=== PATIENT | female | born 1945 | race Caucasian/White ===

== ENCOUNTER 2021-05-07 14:19 | Inpatient (IN) | payer MEDICARE ==
--- NOTE | 2021-05-07 14:35 | ED ---
Chest Pain HPI - General Stated Complaint: Chest Pain Time Seen by Provider: 05/07/21 14:19 Source: patient, EMS, RN notes reviewed Mode of arrival: EMS - History of Present Illness Initial Comments: 75-year-old female with no prior history of heart or lung disease who presents by EMS with complaints of the onset just prior to arrival of retrosternal chest pain nonradiating 5/10 severity she states it felt like a pressure or heaviness or tightness. She was given 3 nitroglycerin one full-strength aspirin by paramedics upon arrival patient's pain level was 0/10. She did have some nausea with this. Her only prior history of that of hypertension which apparently she does not take medicines regularly. No recent illnesses no trauma no other complaints or modifying factors at this time. MD Complaint: chest pain - Related Data Home Medications Medication Instructions Recorded Confirmed Aspirin EC [Ecotrin] 81 mg PO HS 06/10/15 05/07/21 Ascorbic Acid [Vitamin C] 1,000 mg PO HS 05/07/21 05/07/21 Cholecalciferol [Vitamin D3 (25 25 mcg PO HS 05/07/21 05/07/21 Mcg = 1000 Iu)] Cyanocobalamin (Vitamin B-12) 1,000 mcg PO HS 05/07/21 05/07/21 [Vitamin B-12] L.acidoph,Paracasei, B.lactis 1 cap PO HS 05/07/21 05/07/21 [Probiotic] Ubidecarenone [Co Q-10] 100 mg PO HS 05/07/21 05/07/21 Allergies Allergy/AdvReac Type Severity Reaction Status Date / Time codeine AdvReac dizziness Verified 05/07/21 16:45 Review of Systems ROS Statement: Those systems with pertinent positive or pertinent negative responses have been documented in the HPI. ROS Other: All systems not noted in ROS Statement are negative. EKG Findings - EKG Results: EKG: interpreted by MING, sinus rhythm (EKG demonstrates a sinus tachycardia rate 102. Interval 172 QRS duration 90 QT since QTC 354/461 evidence a left exodeviation nonspecific septal changes this is compared to the one transmitted by paramedics which did demonstrate at that time some evidence of ST depression in leads 2 and 3 as well A) Past Medical History Past Medical History: Hypertension History of Any Multi-Drug Resistant Organisms: None Reported Past Surgical History: Cholecystectomy, Tubal Ligation Past Anesthesia/Blood Transfusion Reactions: No Reported Reaction Past Psychological History: No Psychological Hx Reported Additional Psychological History / Comment(s): PT IS INDEPENDANT, 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 Past Alcohol Use History: None Reported Past Drug Use History: None Reported - Past Family History Father Family Medical History: No Reported History Mother History Unknown: Yes General Exam - General Exam Comments Initial Comments: This is a well-developed well-nourished awake alert oriented 3 female General appearance: alert, anxious Head exam: Present: atraumatic, normocephalic, normal inspection Eye exam: Present: normal appearance, PERRL, EOMI. Absent: scleral icterus, conjunctival injection, periorbital swelling ENT exam: Present: normal exam, mucous membranes moist Neck exam: Present: normal inspection, full ROM, other. Absent: tenderness, meningismus, lymphadenopathy Respiratory exam: Present: normal lung sounds bilaterally. Absent: respiratory distress, wheezes, rales, rhonchi, stridor Cardiovascular Exam: Present: regular rate, normal rhythm, normal heart sounds. Absent: systolic murmur, diastolic murmur, rubs, gallop, clicks GI/Abdominal exam: Present: soft, normal bowel sounds. Absent: distended, tenderness, guarding, rebound, rigid, bruit (Extremityorbruits), pulsatile mass Extremities exam: Present: normal inspection, full ROM, normal capillary refill. Absent: tenderness, pedal edema, joint swelling, calf tenderness Back exam: Present: normal inspection Neurological exam: Present: alert, oriented X3, CN II-XII intact Psychiatric exam: Present: normal affect, normal mood Skin exam: Present: warm, dry, intact, normal color. Absent: rash Course Vital Signs 05/07/21 14:48 Temperature 97.1 F L Pulse Rate 105 H Respiratory 16 Rate Blood Pressure 171/84 O2 Sat by Pulse 96 Oximetry Chest Pain MDM - MDM Imaging reviewed no acute findings. Patient did have a couple more episodes not feeling well on the emergency department but no overt pain. She also stated she had chest pain last evening he did take 5 aspirin at that time. After long discussion she will be seen in the hospital and get evaluated by cardiology the case was discussed with Jonathan from 's service. I did discuss this with the patient's family was present Disposition Clinical Impression: Unstable angina pectoris Disposition: ADMITTED IP TO THIS HOSP Condition: Stable Referrals: Saurav Rowell MD [Primary Care Provider] - 1-2 days
[2021-05-07 14:42] LABS: Basophils # (A) 0.1 k/uL (0-0.2); Basophils % (A) 1 %; Eosinophils # (A) 0.3 k/uL (0-0.7); Eosinophils % (A) 4 %; HCT 48.5 % (34.0-46.0); HGB 15.4 gm/dL (11.4-16.0); Lymphocytes # (A) 2.1 k/uL (1.0-4.8); Lymphocytes % (A) 29 %; MCHC 31.8 g/dL (31.0-37.0); MCV 94.2 fL (80.0-100.0); Monocytes # (A) 0.4 k/uL (0-1.0); Monocytes % (A) 5 %; Neutrophils # (A) 4.2 k/uL (1.3-7.7); Neutrophils % (A) 58 %; Platelet Count 298 k/uL (150-450); RBC 5.15 m/uL (3.80-5.40); RDW 13.3 % (11.5-15.5); WBC 7.1 k/uL (3.8-10.6)
[2021-05-07 14:58] LABS: INR 0.9 (<1.2); Partial Thromboplastin Time 22.7 sec (22.0-30.0); Prothrombin Time 10.4 sec (9.0-12.0)
[2021-05-07 15:11] LABS: Albumin 4.4 g/dL (3.5-5.0); Calcium 9.2 mg/dL (8.4-10.2); Magnesium 2.1 mg/dL (1.6-2.3); Potassium 3.8 mmol/L (3.5-5.1); Total Bilirubin 0.7 mg/dL (0.2-1.3); Total Protein 7.5 g/dL (6.3-8.2)
--- NOTE | 2021-05-07 15:34 | XR ---
EXAMINATION TYPE: XR chest 2V DATE OF EXAM: 05/07/2021 COMPARISON: NONE HISTORY: Syncope TECHNIQUE: 2 view FINDINGS: Heart and mediastinum are normal. Lungs are clear. Diaphragm is normal. Bony thorax is inta ct. There are chest leads. IMPRESSION: Normal chest.
[2021-05-07] MEDS ORDERED: HEPARIN SODIUM 1,000 UN/ML (10ML VL) IV ONE (17:11)
[2021-05-07] MEDS ORDERED: NITROGLYCERIN SL TABS 0.4 MG TAB SUBLINGUAL PRN (17:11)
--- NOTE | 2021-05-07 17:39 | P.HPIM ---
<Ty Hector - Last Filed: 05/07/21 17:43> History of Present Illness H&P Date: 05/07/21 History of Presenting Illness: Patient is a very pleasant 75-year-old female with a past medical history of hypertension whom is not taking medication as prescribed. She presented to the emergency department today with a chief complaint of sudden onset dizziness/lightheadedness and feeling as though she was suddenly going to pass out. Patient reports feeling as though all of the blood had left her body and that "I was going to leave this world." Patient states this lasted approxima tely 15 minutes and was followed by chest pressure and EMS was called. She reports being given 3 nitroglycerin and an aspirin by EMS which did relieve the chest pressure but also caused some nausea. 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 She denies having any headache, changes in her vision or hearing, tinnitus, palpitations, shortness of breath, dyspnea with exertion, abdominal pain, vomiting, or experiencing any num bness/tingling/weakness in her extremities. Patient was seen and fully evaluated in the emergency department. A chest x-ray was completed and negative for acute cardiopulmonary process. EKG showing sinus tachycardia at 102 bpm. CBC and BMP were unremarkable. Troponin was less than 0.012. D-dimer was borderline elevated at 0.60. Patient admitted under our services with consultation to cardiology. Review of systems: Pertinent positives and negatives as discussed in HPI, a complete review of systems was performed and all other systems are negative. Physical exam: Vital signs reviewed and stable. General: Nontoxic, no distress and appears stated age. Derm: Skin warm and dry, normal coloration for ethnicity. Head: Atraumatic, normocephalic and symmetric. Eyes: EOMs intact, no lid lag, and anicteric sclera Mouth: no lip lesions, mucus membranes moist Cardiovascular: regular rate and rhythm with normal S1S2, no murmur, positive posterior tibial pulses bilaterally, and cap refill < 2 seconds. Lungs: Respirations even, regular, and unlabored on room air. Lungs CTA bilaterally, no rhonchi, no rales, no wheezing, and no accessory muscle usage. Abdominal: soft, nontender to palpation, no guarding, no appreciable organomegaly Ext: ROM intact. No gross muscle atrophy, no edema, no contractures Neuro: Speech clear, face symmetrical and CN II-XII grossly intact with no noted focal neuro deficits Psych: Alert and oriented to person, place, time, and situation. Appropriate and pleasant affect. Assessment and Plan of Care: Chest pressure Dizziness/lightheadedness Elevated d-dimer Hypertension, uncontrolled -Continuation of heparin infusion until acute coronary event can be ruled out -Cardiology consult -Telemetry monitoring -Trend troponins -Echocardiogram -CTA to rule out PE -Orthostatic vitals and fall precautions -Cardiac diet -Begin daily Aspirin, atorvastatin, and metoprolol -Lipid profile and Hgb A1c with a.m. labs. The patient is admitted with an anticipated left than 2 midnight stay for evaluation of atypical chest pain/pressure, dizziness/lightheadedness and elevated d-dimer CODE STATUS: Full code DVT prophylaxis: Heparin Discussed with: Patient and daughter Anticipated discharge date: 1-[address]: Home A total of 45 minutes was spent on the care of this complex patient more than 50% of the time was spent in counseling and care coordination. 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 Past Alcohol Use History: None Reported Past Drug Use History: None Reported - Past Family History Father Family Medical History: No Reported History Mother History Unknown: Yes Medications and Allergies Home Medications Medication Instructions Recorded Confirmed Type Aspirin EC [Ecotrin] 81 mg PO HS 06/10/15 05/07/21 History Ascorbic Acid [Vitamin C] 1,000 mg PO HS 05/07/21 05/07/21 History Cholecalciferol [Vitamin D3 (25 25 mcg PO HS 05/07/21 05/07/21 History Mcg = 1000 Iu)] Cyanocobalamin (Vitamin B-12) 1,000 mcg PO HS 05/07/21 05/07/21 History [Vitamin B-12] L.acidoph,Paracasei, B.lactis 1 cap PO HS 05/07/21 05/07/21 History [Probiotic] Ubidecarenone [Co Q-10] 100 mg PO HS 05/07/21 05/07/21 History Allergies Allergy/AdvReac Type Severity Reaction Status Date / Time codeine AdvReac dizziness Verified 05/07/21 16:45 Physical Exam Vitals: Vital Signs Temp Pulse Resp BP Pulse Ox 05/07/21 14:48 97.1 F L 105 H 16 171/84 96 Intake and Output 05/07/21 05/07/21 05/07/21 06:59 14:59 22:59 Other: Weight 90.718 kg Results CBC & Chem 7: 05/07/21 14:24 05/07/21 14:24 Labs: Abnormal Lab Results - Last 24 Hours (Table) 05/07/21 05/07/21 05/07/21 Range/Units 14:24 14:24 14:24 Hct 48.5 H (34.0-46.0) % D-Dimer 0.60 H (<0.60) mg/L FEU Glucose 116 H (74-99) mg/dL AST 37 H (14-36) U/L ALT 38 H (4-34) U/L <Alba Sears - Last Filed: 05/07/21 19:51> History of Present Illness Patient seen and examined independently. Patient was also seen by Ty Hector NP and case was discussed. I am in agreement with subjective, physical exam, assessment and plan as written above and amended below. No current chest pain. Follows with Dr. Puentes summer counselor out of [place]. General: non toxic, no distress, appears at stated age Derm: warm, dry Head: atraumatic, normocephalic, symmetric Eyes: EOMI, no lid lag, anicteric sclera Mouth: no lip lesion, mucus membranes moist Cardiovascular: S1S2 reg, no murmur, positive posterior tibial pulse bilateral, Lungs: CTA bilateral, no rhonchi, no rales , no accessory muscle use Physical Exam Osteopathic Statement: *. No significant issues noted on an osteopathic structural exam other than those noted in the History and Physical/Consult. Vitals: Vital Signs Temp Pulse Resp BP Pulse Ox 05/07/21 18:30 98 14 179/85 95 05/07/21 14:48 97.1 F L 105 H 16 171/84 96 05/07/21 14:31 100 23 Intake and Output 05/07/21 05/07/21 05/07/21 06:59 14:59 22:59 Other: Weight 90.718 kg Results CBC & Chem 7: 05/07/21 14:24 05/07/21 14:24 Labs: Abnormal Lab Results - Last 24 Hours (Table) 05/07/21 05/07/21 05/07/21 Range/Units 14:24 14:24 14:24 Hct 48.5 H (34.0-46.0) % D-Dimer 0.60 H (<0.60) mg/L FEU Glucose 116 H (74-99) mg/dL AST 37 H (14-36) U/L ALT 38 H (4-34) U/L
[2021-05-07] MEDS: HEPARIN SOD,PORK IN 0.45% NACL 25,000 UNIT in 0.45% NACL 1 250ML.BAG IV SCH (18:22)
--- NOTE | 2021-05-07 18:22 | CT ---
EXAMINATION TYPE: CT chest angio for PE DATE OF EXAM: 05/07/2021 COMPARISON: None HISTORY: Elevated dimer CT DLP: 516.3 mGycm Automated exposure control for dose reduction was used. CONTRAST: Performed with IV Contrast, patient injected with 65 mL of Isovue 370. Images obtained from the thoracic inlet to the diaphragm with IV contrast. There are Three-D postproc essed images. There is no mediastinal adenopathy. Thoracic aorta is intact. There is no aneurysm or dissection. There is normal contrast opacification of the pulmonary arteries. There are no filling defects. The lungs are clear of consolidation. There is mild interstitial density at the posterior lung bases. There is no pleural effusion. There is no evidence of a pulmonary mass. There are no hilar masses. The thoracic spine is intact. There is no compression fracture. Sternum is intact. IMPRESSION: No evidence of pulmonary embolism. Mild interstitial infiltrates at the posterior lung bases. 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 No suspicious pulmonary mass.
[2021-05-07] MEDS: NITROGLYCERIN OINT 1 INCH/GM PACKET TOPICAL SCH (18:24)
[2021-05-07] MEDS ORDERED: NON FORMULARY DRUG (Ubidecarenone [Co Q-10] 100 MG Capsule) PO SCH (21:00)
[2021-05-07] MEDS: ATORVASTATIN 40 MG TAB PO SCH (21:05)
[2021-05-07] MEDS: CYANOCOBALAMIN 500 MCG TAB PO SCH (21:06)
[2021-05-07] MEDS: CHOLECALCIFEROL 25 MCG (1000 IU) TABLET PO SCH (21:06)
[2021-05-07] MEDS: METOPROLOL TARTRATE 25 MG TAB PO SCH (21:06)
[2021-05-07] MEDS: ASCORBIC ACID 500 MG TAB PO SCH (21:06)
[2021-05-07] MEDS ORDERED: MAG HYDROX/AL HYDROX/SIMETH 30 ML CUP PO PRN (21:18)
[2021-05-07] MEDS: PANTOPRAZOLE 40 MG TABLET PO SCH (21:48)
[2021-05-07] MEDS: LACTOBACILLUS ACIDOPH & BULGAR 1 EACH PACKET PO SCH (21:48)
[2021-05-08] MEDS: NITROGLYCERIN OINT 1 INCH/GM PACKET TOPICAL SCH ×4 (00:59→17:38)
[2021-05-08] MEDS: ACETAMINOPHEN TAB 325 MG TAB PO PRN ×4 (02:41→19:25)
[2021-05-08] MEDS ORDERED: amLODIPine 10 MG TAB PO STA (05:34)
--- NOTE | 2021-05-08 09:01 | P.CRDCN ---
History of Present Illness Consult date: 05/08/21 Consult reason: chest pain History of present illness: 75-year-old lady with history of hypertension comes to [facility] with symptoms of dizziness and also chest tightness. She lives in [place] was here in our community to [place] and Dr. masterson fairly uneventful shopping developed sudden onset severe dizziness. She did not have vertigo. Along the way she developed what she describes as a pressure in her chest. Mild to moderate intensity at rest without definite radiation to neck, back. Her blood pressure was quite elevated when she initially presented troponin was mildly elevated EKG did not reveal ischemic changes she was started on intravenous heparin and was admitted to floor. I was called last night with an episode of dizziness and elevated blood pressures. I started her on amlodipine 10 mg daily following which her blood pressure has normalized. This morning she is feeling much better but still has mild dizziness the exact etiology for which is unclear. Patient has recently been diagnosed with hypertension was on some medications but stopped taking it. At the time of admission she was not on any cardiac medications. There is no history of diabetes and dyslipidemia there is no family history of premature coronary artery disease and she is not a smoker Patient needs an echocardiogram to assess her LV function and wall motion and needs cardiac catheterization to rule out ischemic heart disease given the elevated troponin Troponin is 0.8 EKG doesn't reveal ischemic changes Computed tomography scan of the chest is negative for pulmonary embolism I aortic aneurysm or dissection However I want her dizziness evaluated further if necessary by a CAT scan before we do invasive testing on her. Hopefully the neurology can evaluate the patient and I will do the cath tomorrow. I discussed these issues at length with her and she understands and is in agreement with the plans Constitutional: Denies chills. Denies fever. Eyes: Denies blurred vision. Denies pain. Ears, nose, mouth and throat: Denies headache. Denies sore throat. Cardiovascular: Significant for chest pain. Denies shortness of breath. Respiratory: Denies cough. Gastrointestinal: Denies abdominal pain. Denies diarrhea. Denies nausea. Denies vomiting. Musculoskeletal: Denies myalgias. Integumentary: Denies pruritus. Denies rash. Neurological: Denies numbness. Denies weakness. Significant for dizziness Psychiatric: Denies anxiety. Denies depression. Endocrine: Denies fatigue. Denies weight change. Genitourinary: Denies burning, hematuria, frequency of urination. Hematological: No anemia or excess bleeding. General: The patient is awake and alert, in no distress, and does not appear acutely ill. Skin: Skin is warm and dry and no rashes or lesions are noted. Eye: Pupils are equal, round and reactive to light, extra-ocular movements are intact; there is normal conjunctiva bilaterally. Ears, nose, mouth and throat: There are moist mucous membranes and no oral lesions. Neck: The neck is supple, there is no tenderness or JVD. Cardiovascular: There is a regular rate and rhythm. No murmur, rub or gallop is appreciated. Respiratory: Lungs are clear to auscultation, respirations are non-labored, breath sounds are equal. Gastrointestinal: Soft, non-distended, non-tender abdomen without masses or o rganomegaly noted. There is no rebound or guarding present. Bowel sounds are unremarkable. Back: There is no tenderness to palpation in the midline. There is no obvious deformity. Musculoskeletal: Normal ROM, no tenderness, There is no pedal edema. There is no calf tenderness or swelling. Extremities: No edema. Vascular: Femoral pulse is normal. Posterior tibial pulses are normal .Dorsalis pedis is palpable. Neurological: CN II-XII intact. There are no obvious motor or sensory deficits. Speech is normal. Psychiatric: Cooperative, appropriate mood & affect, normal judgment. Assessment and plan: Non-ST segment elevation PR Dizziness rule out cardiac causes Uncontrolled hypertension I will continue the patient on IV heparin start the patient on amlodipine Obtain an echocardiogram Neurology evaluation Cardiac cath tomorrow Past Medical History Past Medical History: Hypertension History of Any Multi-Drug Resistant Organisms: None Reported Past Surgical History: Cholecystectomy, Tubal Ligation Past Anesthesia/Blood Transfusion Reactions: No Reported Reaction Past Psychological History: No Psychological Hx Reported Additional Psychological History / Comment(s): PT IS INDEPENDANT, 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 Past Alcohol Use History: None Reported Past Drug Use History: None Reported - Past Family History Father Family Medical History: No Reported History Mother History Unknown: Yes Medications and Allergies Home Medications Medication Instructions Recorded Confirmed Type Aspirin EC [Ecotrin] 81 mg PO HS 06/10/05/07/21 History Ascorbic Acid [Vitamin C] 1,000 mg PO HS 05/07/21 05/07/21 History Cholecalciferol [Vitamin D3 (25 25 mcg PO HS 05/07/21 05/07/21 History Mcg = 1000 Iu)] Cyanocobalamin (Vitamin B-12) 1,000 mcg PO HS 05/07/21 05/07/21 History [Vitamin B-12] L.acidoph,Paracasei, B.lactis 1 cap PO HS 05/07/21 05/07/21 History [Probiotic] Ubidecarenone [Co Q-10] 100 mg PO HS 05/07/21 05/07/21 History Allergies Allergy/AdvReac Type Severity Reaction Status Date / Time codeine AdvReac dizziness Verified 05/07/21 16:45 Physical Exam Vitals: Vital Signs Temp Pulse Pulse Resp BP BP Pulse Ox 05/08/21 05:34 86 187/80 05/08/21 00:57 98.5 F 72 16 169/73 97 05/07/21 19:25 97.9 F 103 H 16 190/82 98 05/07/21 18:30 98 14 179/85 95 05/07/21 14:48 97.1 F L 105 H 16 171/84 96 05/07/21 14:31 100 23 Intake and Output 05/07/21 05/08/21 05/08/21 22:59 06:59 14:59 Other: # Voids 2 3 Weight 90.718 kg Results 05/07/21 14:24 05/07/21 14:24 Cardiac Enzymes 05/07/21 05/07/21 05/07/21 Range/Units 14:24 14:24 21:11 AST 37 H (14-36) U/L Troponin I <0.012 0.807 H* (0.000-0.034) ng/mL 05/08/21 Range/Units 01:15 AST (14-36) U/L Troponin I 0.780 H* (0.000-0.034) ng/mL Coagulation 05/07/21 05/08/21 Range/Units 14:24 01:15 PT 10.4 (9.0-12.0) sec APTT 22.7 51.7 H (22.0-30.0) sec CBC 05/07/21 Range/Units 14:24 WBC 7.1 (3.8-10.6) k/uL RBC 5.15 (3.80-5.40) m/uL Hgb 15.4 (11.4-16.0) gm/dL Hct 48.5 H (34.0-46.0) % Plt Count 298 (150-450) k/uL Comprehensive Metabolic Panel 05/07/21 Range/Units 14:24 Sodium 140 (137-145) mmol/L Potassium 3.8 (3.5-5.1) mmol/L Chloride 104 (98-107) mmol/L Carbon Dioxide 26 (22-30) mmol/L BUN 12 (7-17) mg/dL Creatinine 0.90 (0.52-1.04) mg/dL Glucose 116 H (74-99) mg/dL Calcium 9.2 (8.4-10.2) mg/dL AST 37 H (14-36) U/L ALT 38 H (4-34) U/L Alkaline Phosphatase 75 (38-126) U/L Total Protein 7.5 (6.3-8.2) g/dL Albumin 4.4 (3.5-5.0) g/dL Current Medications Generic Name Dose Route Start Last Admin Trade Name Freq PRN Reason Stop Dose Admin Acetaminophen 650 mg 05/08/21 01:06 05/08/21 05:15 Acetaminophen Tab 325 Mg Tab PO 650 mg Q4HR PRN Administration Fever and/ or Pain Al Hydroxide/Mg Hydroxide 30 ml 05/07/21 21:18 Mag Hydrox/Al Hydrox/Simeth 30 Ml Cup PO Q4HR PRN GI Upset Ascorbic Acid 1,000 mg 05/07/21 21:00 05/07/21 21:06 Ascorbic Acid 500 Mg Tab PO 1,000 mg HS MUNIRA Administration Aspirin 325 mg 05/08/21 09:00 Aspirin 325 Mg Tab PO DAILY MUNIRA Atorvastatin Calcium 40 mg 05/07/21 21:00 05/07/21 21:05 Atorvastatin 40 Mg Tab PO 40 mg HS MUNIRA Administration Cholecalciferol 25 mcg 05/07/21 21:00 05/07/21 21:06 Cholecalciferol 25 Mcg (1000 Iu) Tablet PO 25 mcg HS MUNIRA Administration Cyanocobalamin 1,000 mcg 05/07/21 21:00 05/07/21 21:06 Cyanocobalamin 500 Mcg Tab PO 1,000 mcg HS MUNIRA Administration Heparin Sodium/Sodium Chloride 250 mls @ 9.997 mls/hr 05/07/21 17:15 05/07/21 18:22 25,000 unit/ Sodium Chloride IV 11.02 units/kg/hr .Q24H MUNIRA 9.997 mls/hr Administration Protocol 11.02 UNITS/KG/HR Lactobacillus Acidoph/Bulgaricus 1 each 05/07/21 21:00 05/07/21 21:48 Lactobacillus Acidoph & Bulgar 1 Each Packet PO 1 each HS MUNIRA Administration Metoprolol Tartrate 25 mg 05/07/21 21:00 05/07/21 21:06 Metoprolol Tartrate 25 Mg Tab PO 25 mg BID MUNIRA Administration Nitroglycerin 0.4 mg 05/07/21 17:11 Nitroglycerin Sl Tabs 0.4 Mg Tab SUBLINGUAL Q5M PRN Chest Pain Nitroglycerin 1 inch 05/07/21 18:00 05/08/21 05:15 Nitroglycerin Oint 1 Inch/Gm Packet TOPICAL 1 inch Q6HR MUNIRA Administration Pantoprazole Sodium 40 mg 05/07/21 21:30 05/07/21 21:48 Pantoprazole 40 Mg Tablet PO 40 mg AC-BID MUNIRA Administration Intake and Output 05/07/21 05/08/21 05/08/21 22:59 06:59 14:59 Other: # Voids 2 3 Weight 90.718 kg 05/07/21 14:24 05/07/21 14:24
--- NOTE | 2021-05-08 10:19 | P.CNNES ---
History of Present Illness Consult date: 05/08/21 Requesting physician: Ty Hector Reason for Consult: intractable dizziness History of Present Illness: This is a 75-year-old woman with medical history of hypertension and was not on any medication who presented to the emergency department via EMS because of chest pain. Patient stated she had different sudden onset of dizziness and lightheadedness and the feeling as if the she is about to pass out. Patient stated that the her episode of dizziness and lightheadedness lasted for 15 minutes followed by chest pressure as a result she called EMS and was given 3 nitroglycerin and aspirin by EMS team which did relieve her chest pressure. Patient did that she has chronic dizziness, ringing of both ears the last 6 mon th and left hearing loss for a little bit less than 6 months. He could not describe her dizziness in the past but stated yesterday she wasn't feeling well and she felt something was wrong with her head initially she said dizziness but again she could not describe the dizziness of for me she denies that the room was spinning and she felt it was with resting and with movement position. She denies any diplopia. Denies any focal weakness, numbness. But she felt like yesterday was a was different than the the past regarding her reported dizziness lightheadedness sensation. She denies of any visual disturbance, any difficulty swallowing or difficulty getting her words out. She denies any history of stroke or seizures in the past. She said that that she had a mechanical fall denies any loss of consciousness. She has chronic lower back pain. Some other workup in the hospital consisted of: Initial vital signs is blood pressure of 171/84, heart rate of 105, temperature of 97.1 Fahrenheit oral, respiratory of 16, pulse ox of 96% at room air. Patient blood pressure continues to be at the systolic in the range of 150s to 190s while diastolic is in the 70s to 80's. Patient hematocrit is 48.5 otherwise the rest of the CBC with differential is unremarkable Chemistry panel is AST of 37, ALP of 38, troponins 0.807 repeated as 0.780 otherwise the rest of the canister panel is unremarkable. Méndez virus per chart nondetected that. PT, PTT and INR are within the normal limits on initial presentation Patient was started on heparin drip because of elevated troponin. Review of Systems Review of system: The 12 point system was reviewed and apparent positive and negative per HPI. 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 Past Alcohol Use History: None Reported Past Drug Use History: None Reported - Past Family History Father Family Medical History: No Reported History Mother History Unknown: Yes Medications and Allergies Home Medications Medication Instructions Recorded Confirmed Type Aspirin EC [Ecotrin] 81 mg PO HS 06/10/15 05/07/21 History Ascorbic Acid [Vitamin C] 1,000 mg PO HS 05/07/21 05/07/21 History Cholecalciferol [Vitamin D3 (25 25 mcg PO HS 05/07/21 05/07/21 History Mcg = 1000 Iu)] Cyanocobalamin (Vitamin B-12) 1,000 mcg PO HS 05/07/21 05/07/21 History [Vitamin B-12] L.acidoph,Paracasei, B.lactis 1 cap PO HS 05/07/21 05/07/21 History [Probiotic] Ubidecarenone [Co Q-10] 100 mg PO HS 05/07/21 05/07/21 History Allergies Allergy/AdvReac Type Severity Reaction Status Date / Time codeine AdvReac dizziness Verified 05/07/21 16:45 Physical Examination - Vital Signs Vital Signs: Vital Signs Temp Pulse Pulse Resp BP BP Pulse Ox 05/08/21 07:00 98.3 F 76 18 159/73 97 05/08/21 05:34 86 187/80 05/08/21 00:57 98.5 F 72 16 169/73 97 05/07/21 19:25 97.9 F 103 H 16 190/82 98 05/07/21 18:30 98 14 179/85 95 05/07/21 14:48 97.1 F L 105 H 16 171/84 96 05/07/21 14:31 100 23 Intake and Output 05/07/21 05/08/21 05/08/21 22:59 06:59 14:59 Other: # Voids 2 3 Weight 90.718 kg GENERAL: The patient is lying in bed and is not in acute distress. CHEST: The heart rate is regular rate rhythm. No murmurs to auscultation. LUNG: Clear to auscultation bilaterally no wheezing noted throughout. Not labored breathing. ABDOMEN/GI: Bowel sounds present in all 4 quadrants. No tenderness to palpation throughout. NEUROLOGICAL: Higher mental function: The patient is awake, alert, oriented to self, place and time. Patient is following commands. No aphasia and no neglect. Cranial nerves: The pupils are round, equal and reactive to light. Visual baer are full to confrontation throughout. Extraocular movement is intact no nystagmus is noted. Facial sensation is normal to touch throughout. The facial strength is normal throughout. Hearing is decreased on left compared to right to hand rub (stated that is old). Tongue is midline and moved [id number] without any difficulty. No dysarthria is noted. Shoulder shrug is normal bilaterally. Motor: Gait is normal with normal arm swings. The strength is 5 over 5 throughout. Normal tone and bulk. Cerebellum: Normal finger to nose and heel to ware bilaterally. Sensation: Sensation is normal to touch throughout. Reflexes (right/left): 2+ throughout. except ankles are 1+ Plantars are downgoing bilaterally. Results - Laboratory Findings CBC and BMP: 05/08/21 08:11 05/08/21 08:11 Abnormal Lab Findings: Abnormal Labs 05/07/21 05/07/21 05/07/21 14:24 14:24 14:24 Hct 48.5 H APTT D-Dimer 0.60 H Glucose 116 H AST 37 H ALT 38 H Troponin I 05/07/21 05/08/21 05/08/21 21:11 01:15 01:15 Hct APTT 51.7 H D-Dimer Glucose AST ALT Troponin I 0.807 H* 0.780 H* Assessment and Plan Assessment: Acute on chronic dizziness (but had hard time describing it but denies room spinning): Possibly due to uncontrolled hypertension vs peripheral >central causes Chronic dizziness episode with tinnitus and left hearing loss. Seems more peripheral Chest pressure was elevated troponin Uncontrolled hypertension Plan: I ordered CT of the head. If The CT is negative and the patient continues to have dizziness recommend to pursue MRI the brain with and without gadolinium to rule out any intracranial process. Cardiology is on board 2-D echo was ordered and is pending Hemoglobin A1c is ordered and is pending I consulted physical therapy and occupation therapy for gait training. Recommend patient to follow-up with ENT as outpatient and possibly consider vestibular rehab as outpatient. We'll defer the rest of the medical management to the primary team The plan is discussed with the patient's nurse. Thank you for the consultation. Dr. Nunez will start neurology service tomorrow AM. Jomar Pichardo M.D. Neuro-hospitalist Time with Patient: Greater than 30
[2021-05-08] MEDS: METOPROLOL TARTRATE 25 MG TAB PO SCH ×2 (10:54→20:27)
[2021-05-08] MEDS: ASPIRIN 325 MG TAB PO SCH (10:54)
[2021-05-08] MEDS: PANTOPRAZOLE 40 MG TABLET PO SCH ×2 (10:54→17:38)
[2021-05-08 11:16] LABS: HCT 44.6 % (37.2-46.3); HGB 14.5 g/dL (12.0-15.0); MCH 29.8 pg (27.0-32.0); MCHC 32.5 g/dL (32.0-37.0); MCV 91.6 fL (80.0-97.0); Mean Platelet Volume 9.6 fL (9.5-12.2); NRBC Per 100 WBC 0 /100 WBCS (0.0-0.0); Platelet Count 304 X 10*3/uL (140-440); RBC 4.87 X 10*6/uL (4.10-5.20); RDW 13.7 % (11.5-14.5); WBC 8.17 X 10*3/uL (4.50-10.00)
[2021-05-08 11:22] LABS: ALT 36 U/L (8-44); AST 31 U/L (13-35); African American GFR (CKD) 87.3 (60.0-200.0); Albumin 4.1 g/dL (3.8-4.9); Albumin/Globulin Ratio 1.76 (1.60-3.17); Alkaline Phosphatase 63 U/L (41-126); BUN/Creat Ratio 12.61 Ratio (12.00-20.00); Blood Urea Nitrogen 9.9 mg/dL (9.0-27.0); Calcium 9.3 mg/dL (8.7-10.3); Carbon Dioxide 24.5 mmol/L (20.0-27.5); Chloride 104 mmol/L (96-109); Chol/HDL Ratio 4.36 Ratio; Globulin 2.3 g/dL (1.6-3.3); Glucose 113 mg/dL (70-110); LDL Cholesterol,Calculated 135.4 mg/dL (0.0-131.0); Magnesium 2.3 mg/dL (1.5-2.4); Non-African American GFR(CKD) 75.3 (60.0-200.0); Potassium 4.1 mmol/L (3.5-5.5); Sodium 141 mmol/L (135-145); Total Protein 6.5 g/dL (6.2-8.2)
--- NOTE | 2021-05-08 11:41 | CT ---
EXAMINATION TYPE: CT brain wo con DATE OF EXAM: 05/08/2021 COMPARISON: None HISTORY: dizziness CT DLP: 1171 mGycm Automated exposure control for dose reduction was used. Helical imaging through the brain. FINDINGS: There is no hemorrhage or hydrocephalus. Cerebral vascular calcifications are present. There is corti thomas atrophy. Periventricular white matter shows patchy low attenuation. Calvarium is intact. Paranasa l sinuses and mastoid air cells as visualized are normal. IMPRESSION: NO ACUTE ABNORMALITY. Age-related changes of atrophy and probable chronic small vessel ischemia.
--- NOTE | 2021-05-08 15:11 | ECHOF ---
Referral Reason:Unstable angina MEASUREMENTS -------- HEIGHT: 170.2 cm WEIGHT: 90.7 kg BP: RVIDd: 3.1 cm (< 3.3) IVSd: 1.4 cm (0.6 - 1.1) LVIDd: 4.4 cm (3.9 - 5.3) LVPWd: 1.4 cm (0.6 - 1.1) IVSs: 1.6 cm LVIDs: 3.5 cm LVPWs: 1.7 cm LA Diam: 4.0 cm (2.7 - 3.8) Ao Diam: 3.0 cm (2.0 - 3.7) AV Cusp: 1.4 cm (1.5 - 2.6) MV EXCURSION: 15.618 mm (> 18.000) MV EF SLOPE: 59 mm/s (70 - 150) EPSS: 0.3 cm MV E Freddy: 0.54 m/s MV DecT: 243 ms MV A Freddy: 0.72 m/s MV E/A Ratio: 0.75 RAP: 5.00 mmHg RVSP: 14.20 mmHg FINDINGS -------- Sinus rhythm. This was a techncally difficult study with suboptimal views, , Definity utilized for enhancement of i mages. The left ventricular size is normal. There is moderate concentric left ventricular hypertrophy. O verall left ventricular systolic function is mild-moderately impaired with, an EF between 40 - 45 %. Anterseptal Hypokinesis Septal Hypokinesis [place] Hypokinesis. The right ventricle is normal in size. The left atrial size is normal. The right atrial size is normal. There is mild aortic valve sclerosis. There is no evidence of aortic regurgitation. Mild mitral regurgitation is present. Mild tricuspid regurgitation present. Right ventricular systolic pressure is normal at < 35 mmHg. The pulmonic valve was not well visualized. Echo free space indicative of a pericardial fat pad. CONCLUSIONS -------- 1. This was a techncally difficult study with suboptimal views, , Definity utilized for enhancement o f images. 2. The left ventricular size is normal. 3. There is moderate concentric left ventricular hypertrophy. 4. Overall left ventricular systolic function is mild-moderately impaired with, an EF between 40 - 45 %. 5. Anterseptal Hypokinesis 6. Septal Hypokinesis 7. [place] Hypokinesis. 8. The right ventricle is normal in size. 9. The left atrial size is normal. 10. The right atrial size is normal. 11. There is mild aortic valve sclerosis. 12. Mild mitral regurgitation is present. 13. Mild tricuspid regurgitation present. 14. The pulmonic valve was not well visualized. 15. Echo free space indicative of a pericardial fat pad. GLASS GLAZIER: Claire Guerra RDCS
[2021-05-08] MEDS: HEPARIN SOD,PORK IN 0.45% NACL 25,000 UNIT in 0.45% NACL 1 250ML.BAG IV SCH (17:38)
--- NOTE | 2021-05-08 18:22 | P.PN ---
<Ty Hector - Last Filed: 05/08/21 18:10> Subjective Progress Note Date: 05/08/21 Hospital course: Patient is a very pleasant 75-year-old female with a past medical history of h ypertension whom is not taking medication as prescribed. She presented to the emergency department today with a chief complaint of sudden onset dizziness/lightheadedness and feeling as though she was suddenly going to pass out. Patient reports feeling as though all of the blood had left her body and that "I was going to leave this world." Patient states this lasted approximately 15 minutes and was followed by chest pressure and EMS was called. She reports being given 3 nitroglycerin and an aspirin by EMS which did relieve the chest pressure but also caused some nausea. 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 She denies having any headache, changes in her vision or hearing, tinnitus, palpitations, shortness of breath, dyspnea with exertion, abdominal pain, vomiting, or experiencing any numbness/tingling/weakness in her extremities. Patient was seen and fully evaluated in the emergency department. A chest x-ray was completed and negative for acute cardiopulmonary process. EKG showing sinus tachycardia at 102 bpm. CBC and BMP were unremarkable. Troponin was less than 0.012. D-dimer was borderline elevated at 0.60. Patient admitted under our services with consultation to cardiology. Troponins trended: < 0.012, 0.807, and 0.780. Echocardiogram: mild to moderately impaired EF between 40 and 45% with anteroseptal, septal, and apex hypokinesis. Patient remains on heparin infusion, cardiology plans to take patient for cardiac cath tomorrow morning. Neurology was also consulted secondary to persistent dizziness. Physical exam: Patient seen and fully evaluated at bedside this morning. She reports resolution of chest pressure persistent dizziness/lightheadedness. She denies any headache, changes in her vision or hearing, palpitations, shortness of breath, nausea, or experiencing any numbness/tingling/weakness in her extremities. Blood pressures have been controlled since starting metoprolol 25 mg twice a day and one-time dose of Norvasc. Troponins elevated overnight. Patient remains on heparin infusion per ACS protocol. Cardiology plans to take patient for cardiac cath tomorrow morning. Patient transferred to inpatient admission. Vital signs reviewed and stable. General: Nontoxic, no distress and appears stated age. Derm: Skin warm and dry, normal coloration for ethnicity. Head: Atraumatic, normocephalic and symmetric. Eyes: EOMs intact, no lid lag, and anicteric sclera. No nystagmus. Mouth: no lip lesions, mucus membranes moist Cardiovascular: regular rate and rhythm with normal S1S2, no murmur, positive posterior tibial pulses bilaterally, and cap refill < 2 seconds. Lungs: Respirations even, regular, and unlabored on room air. Lungs CTA bilaterally, no rhonchi, no rales, no wheezing, and no accessory muscle usage. Abdominal: soft, nontender to palpation, no guarding, no appreciable organomegaly Ext: ROM intact. No gross muscle atrophy, no edema, no contractures Neuro: Speech clear, face symmetrical and CN II-XII grossly intact with no noted focal neuro deficits Psych: Alert and oriented to person, place, time, and situation. Appropriate and pleasant affect. Assessment and Plan of Care: NSTEMI Dizziness/lightheadedness Elevated d-dimer Hypertension, uncontrolled -Continuation of heparin infusion per ACS protocol -Cardiology following, plans to take patient to cath lab radiological technologist tomorrow morning -Telemetry monitoring -Troponins trended: < 0.012, 0.807, and 0.780. -Echocardiogram: Revealed mild to moderately impaired EF between 40 and 45% with anteroseptal, septal, and apex hypokinesis -CTA to rule out PE -Orthostatic vitals and fall precautions -Cardiac diet -Begin daily Aspirin, atorvastatin, and metoprolol -Lipid profile and Hgb A1c with a.m. labs. -Neurology consulted secondary to persistent dizziness, plans -Blood pressures have been controlled since starting metoprolol 25 mg twice a day and one-time dose of Norvasc. CODE STATUS: Full code DVT prophylaxis: Heparin Discussed with: Patient and daughter Anticipated discharge date: 1-[address]: Home A total of 45 minutes was spent on the care of this complex patient more than 50% of the time was spent in counseling and care coordination. Objective - Vital Signs Vital signs: Vital Signs Temp 98.0 F 05/08/21 14:52 Pulse 70 05/08/21 14:52 Resp 18 05/08/21 14:52 BP 121/68 05/08/21 14:52 Pulse Ox 97 05/08/21 14:52 Intake & Output 05/07/21 05/08/21 05/08/21 18:59 06:59 18:59 Intake Total 720 Balance 720 Weight 90.718 kg Intake: IV 160 0.9 Normal Saline 160 Intake, IV Titration 80 Amount Heparin Sod,Pork in 0.45% 80 NaCl 25,000 unit In 0.45 % NaCl 1 250ml.bag @ 11. 02 UNITS/KG/HR 9.997 mls/ hr IV .Q24H MUNIRA Rx#: [id number] Oral 480 Other: # Voids 3 - Labs CBC & Chem 7: 05/08/21 08:11 05/08/21 08:11 Labs: Abnormal Lab Results - Last 24 Hours (Table) 05/07/21 05/08/21 05/08/21 Range/Units 21:11 01:15 01:15 APTT 51.7 H (22.0-30.0) sec Glucose (70-110) mg/dL Hemoglobin A1c (0.0-6.0) % Troponin I 0.807 H* 0.780 H* (0.000-0.034) ng/mL Cholesterol (0.00-200.00) mg/dL LDL Cholesterol, Calc (0.0-131.0) mg/dL 05/08/21 05/08/21 05/08/21 Range/Units 08:11 08:11 08:11 APTT 45.0 H (22.0-30.0) sec Glucose 113 H (70-110) mg/dL Hemoglobin A1c 6.5 H (0.0-6.0) % Troponin I (0.000-0.034) ng/mL Cholesterol 206.00 H (0.00-200.00) mg/dL LDL Cholesterol, Calc 135.4 H (0.0-131.0) mg/dL <Alba Sears - Last Filed: 05/08/21 19:23> Subjective Ty Hector NP rendered care for this patient independently, reviewed the findings and plan as documented in the note above. I did not physically speak with or examine the patient on this date. Objective - Vital Signs Vital signs: Vital Signs Temp 98.0 F 05/08/21 14:52 Pulse 70 05/08/21 14:52 Resp 18 05/08/21 14:52 BP 121/68 05/08/21 14:52 Pulse Ox 97 05/08/21 14:52 Intake & Output 05/08/21 05/08/21 05/09/21 06:59 18:59 06:59 Intake Total 1192.597 Balance 1192.597 Intake: IV 160 0.9 Normal Saline 160 Intake, IV Titration 312.597 Amount Heparin Sod,Pork in 0.45% 312.597 NaCl 25,000 unit In 0.45 % NaCl 1 250ml.bag @ 11. 02 UNITS/KG/HR 9.997 mls/ hr IV .Q24H MUNIRA Rx#: [id number] Oral 720 Other: # Voids 3 - Labs CBC & Chem 7: 05/08/21 08:11 05/08/21 08:11 Labs: Abnormal Lab Results - Last 24 Hours (Table) 05/07/21 05/08/21 05/08/21 Range/Units 21:11 01:15 01:15 APTT 51.7 H (22.0-30.0) sec Glucose (70-110) mg/dL Hemoglobin A1c (0.0-6.0) % Troponin I 0.807 H* 0.780 H* (0.000-0.034) ng/mL Cholesterol (0.00-200.00) mg/dL LDL Cholesterol, Calc (0.0-131.0) mg/dL 05/08/21 05/08/21 05/08/21 Range/Units 08:11 08:11 08:11 APTT 45.0 H (22.0-30.0) sec Glucose 113 H (70-110) mg/dL Hemoglobin A1c 6.5 H (0.0-6.0) % Troponin I (0.000-0.034) ng/mL Cholesterol 206.00 H (0.00-200.00) mg/dL LDL Cholesterol, Calc 135.4 H (0.0-131.0) mg/dL
[2021-05-08] MEDS: ATORVASTATIN 40 MG TAB PO SCH (20:26)
[2021-05-08] MEDS: CYANOCOBALAMIN 500 MCG TAB PO SCH (20:26)
[2021-05-08] MEDS: CHOLECALCIFEROL 25 MCG (1000 IU) TABLET PO SCH (20:27)
[2021-05-08] MEDS: ASCORBIC ACID 500 MG TAB PO SCH (20:27)
[2021-05-08] MEDS: LACTOBACILLUS ACIDOPH & BULGAR 1 EACH PACKET PO SCH (20:28)
[2021-05-09] MEDS: NITROGLYCERIN OINT 1 INCH/GM PACKET TOPICAL SCH ×3 (05:17→14:03)
[2021-05-09] MEDS ORDERED: ALPRAZolam 0.5 MG TAB PO PRN (08:07)
[2021-05-09] MEDS ORDERED: ALPRAZolam 0.25 MG TAB PO PRN (08:07)
[2021-05-09] MEDS ORDERED: SODIUM CHLORIDE 0.9% 1,000 ML in EMPTY BAG 1 BAG IV SCH ×2 (08:15→12:45)
[2021-05-09] MEDS: PANTOPRAZOLE 40 MG TABLET PO SCH ×2 (09:08→16:17)
[2021-05-09] MEDS: ASPIRIN 325 MG TAB PO SCH (09:08)
--- NOTE | 2021-05-09 09:15 | P.PN ---
<Ty Hector - Last Filed: 05/09/21 15:23> Subjective Progress Note Date: 05/09/21 Hospital course: Patient is a very pleasant 75-year-old female with a past medical history of h ypertension whom is not taking medication as prescribed. She presented to the emergency department today with a chief complaint of sudden onset dizziness/lightheadedness and feeling as though she was suddenly going to pass out. Patient reports feeling as though all of the blood had left her body and that "I was going to leave this world." Patient states this lasted approximately 15 minutes and was followed by chest pressure and EMS was called. She reports being given 3 nitroglycerin and an aspirin by EMS which did relieve the chest pressure but also caused some nausea. 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 She denies having any headache, changes in her vision or hearing, tinnitus, palpitations, shortness of breath, dyspnea with exertion, abdominal pain, vomiting, or experiencing any numbness/tingling/weakness in her extremities. Patient was seen and fully evaluated in the emergency department. A chest x-ray was completed and negative for acute cardiopulmonary process. EKG showing sinus tachycardia at 102 bpm. CBC and BMP were unremarkable. Troponin was less than 0.012. D-dimer was borderline elevated at 0.60. Patient admitted under our services with consultation to cardiology. Troponins trended: < 0.012, 0.807, and 0.780. Echocardiogram: mild to moderately impaired EF between 40 and 45% with anteroseptal, septal, and apex hypokinesis. Patient remains on heparin infusion, cardiology plans to take patient for cardiac cath tomorrow morning. Neurology was also consulted secondary to persistent dizziness. Physical exam: Patient seen and fully evaluated at bedside this morning. She was sitting up in the chair at the bedside and preparing to go down for cardiac cath. Patient reported having an episode of chest pressure yesterday evening, but states that is now resolved. She continues to report mild dizziness and continues to deny having any headache, changes in vision or hearing, palpitations, shortness of breath, or experiencing any numbness/tingling/weakness in her extremities. Patient to remain on heparin infusion pending cardiac catheterization and further recommendations by compressor operator. update...Patient underwent cardiac cath and was found to have 80-90% stenosis of proximal LAD, successful stenting of the proximal left anterior descending artery was completed and patient then started on dual antiplatelet therapy wirh Brillinta and Aspirin. Vital signs reviewed and stable. General: Nontoxic, no distress and appears stated age. Derm: Skin warm and dry, normal coloration for ethnicity. Head: Atraumatic, normocephalic and symmetric. Eyes: EOMs intact, no lid lag, and anicteric sclera. No nystagmus. Mouth: no lip lesions, mucus membranes moist Cardiovascular: regular rate and rhythm with normal S1S2, no murmur, positive posterior tibial pulses bilaterally, and cap refill < 2 seconds. Lungs: Respirations even, regular, and unlabored on room air. Lungs CTA bilaterally, no rhonchi, no rales, no wheezing, and no accessory muscle usage. Abdominal: soft, nontender to palpation, no guarding, no appreciable organomegaly Ext: ROM intact. No gross muscle atrophy, no edema, no contractures Neuro: Speech clear, face symmetrical and CN II-XII grossly intact with no noted focal neuro deficits Psych: Alert and oriented to person, place, time, and situation. Appropriate and pleasant affect. Assessment and Plan of Care: NSTEMI, resulting in successful stenting of proximal LAD Dizziness/lightheadedness Elevated d-dimer Hypertension, uncontrolled -Continuation of heparin infusion per ACS protocol -Cardiology following, plans to take patient to seed analysis laboratory assistant tomorrow morning -Telemetry monitoring -Troponins trended: < 0.012, 0.807, and 0.780. -Echocardiogram: Revealed mild to moderately impaired EF between 40 and 45% with anteroseptal, septal, and apex hypokinesis -CTA to rule out PE -Orthostatic vitals and fall precautions -Cardiac diet -Continue daily Aspirin, atorvastatin, and metoprolol -Lipid profile revealed hyperlipidemia with total cholesterol of 206 and LDL of 135.4. -A1c 6.5%. -Neurology consulted secondary to persistent dizziness, ordered MRI brain -Blood pressures better controlled CODE STATUS: Full code DVT prophylaxis: Heparin Discussed with: Patient and daughter Anticipated discharge date: Tomorrow morning Anticipated discharge place: Home A total of 40 minutes was spent on the care of this complex patient more than 50% of the time was spent in counseling and care coordination. Objective - Vital Signs Vital signs: Vital Signs Temp 98.0 F 05/09/21 02:55 Pulse 72 05/09/21 02:55 Resp 18 05/09/21 02:55 BP 151/69 05/09/21 02:55 Pulse Ox 98 05/09/21 02:55 Intake & Output 05/08/21 05/09/21 05/09/21 18:59 06:59 18:59 Intake Total 1192.597 400 Balance 1192.597 400 Intake: IV 160 0.9 Normal Saline 160 Intake, IV Titration 312.597 Amount Heparin Sod,Pork in 0.45% 312.597 NaCl 25,000 unit In 0.45 % NaCl 1 250ml.bag @ 11. 02 UNITS/KG/HR 9.997 mls/ hr IV .Q24H [facility] Rx#: [id number] Oral 720 400 Other: Voiding Method Toilet # Voids 2 - Labs CBC & Chem 7: 05/08/21 08:11 05/08/21 08:11 Labs: Abnormal Lab Results - Last 24 Hours (Table) 05/08/21 05/08/21 05/08/21 Range/Units 08:11 08:11 08:11 APTT 45.0 H (22.0-30.0) sec Glucose 113 H (70-110) mg/dL Hemoglobin A1c 6.5 H (0.0-6.0) % Cholesterol 206.00 H (0.00-200.00) mg/dL LDL Cholesterol, Calc 135.4 H (0.0-131.0) mg/dL 05/09/21 Range/Units 07:50 APTT 42.1 H (22.0-30.0) sec Glucose (70-110) mg/dL Hemoglobin A1c (0.0-6.0) % Cholesterol (0.00-200.00) mg/dL LDL Cholesterol, Calc (0.0-131.0) mg/dL <Alba Sears - Last Filed: 05/09/21 16:34> Subjective Correction: Patient underwent Cath today Successful stenting of the LAD on ASA and brillenta CTA completed and no evidence of pulmonary embolism Additional diagnosis: Systolic Cardiomyopathy with EF 40-45%, Dyslipidemia Ty Hector NP rendered care for this patient independently, reviewed the findings and plan as documented in the note above. I did not physically speak with or examine the patient on this date. Objective - Vital Signs Vital signs: Vital Signs Temp 98.2 F 05/09/21 13:00 Pulse 66 05/09/21 14:45 Resp 14 05/09/21 14:45 BP 145/69 05/09/21 14:45 Pulse Ox 98 05/09/21 14:45 Intake & Output 05/08/21 05/09/21 05/09/21 18:59 06:59 18:59 Intake Total 1192.597 400 357.12 Balance 1192.597 400 357.12 Intake: IV 160 200 0.9 Normal Saline 160 Intake, IV Titration 312.597 157.12 Amount Heparin Sod,Pork in 0.45% 312.597 157.12 NaCl 25,000 unit In 0.45 % NaCl 1 250ml.bag @ 11. 02 UNITS/KG/HR 9.997 mls/ hr IV .Q24H [facility] Rx#: [id number] Oral 720 400 Other: Voiding Method Toilet # Voids 2 1 - Labs CBC & Chem 7: 05/08/21 08:11 05/08/21 08:11 Labs: Abnormal Lab Results - Last 24 Hours (Table) 05/09/21 Range/Units 07:50 APTT 42.1 H (22.0-30.0) sec
[2021-05-09] MEDS: METOPROLOL TARTRATE 25 MG TAB PO SCH ×2 (09:17→20:37)
[2021-05-09] MEDS ORDERED: LIDOCAINE 1% INJ 10MG/ML (20 ML MDV) ONE (11:11)
[2021-05-09] MEDS ORDERED: VERAPAMIL 2.5 MG/ML 2 ML AMP ONE (11:12)
[2021-05-09] MEDS ORDERED: IV FLUID CONTINUATION 1,000 ML IV ONE (11:15)
[2021-05-09] MEDS ORDERED: fentaNYL (PF) 50 MCG/ML 2 ML AMP ONE (11:22)
[2021-05-09] MEDS: MIDAZOLAM 2 MG/2 ML VIAL IV ONE ×3 (11:39→12:05)
[2021-05-09] MEDS ORDERED: fentaNYL (PF) 50 MCG/ML 2 ML AMP IV ONE (11:39)
[2021-05-09] MEDS ORDERED: LIDOCAINE 1% INJ 10MG/ML (20 ML MDV) SQ ONE ×2 (11:40→12:14)
[2021-05-09] MEDS ORDERED: VERAPAMIL SYRINGE (5 MG/10 ML) INTRAARTER ONE (11:50)
[2021-05-09] MEDS ORDERED: IOPAMIDOL-370 125ML BTL INJ ONE (12:29)
[2021-05-09] MEDS ORDERED: TICAGRELOR 90 MG TAB ONE (12:31)
[2021-05-09] MEDS ORDERED: TICAGRELOR 90 MG TAB PO ONE (12:34)
[2021-05-09] MEDS ORDERED: ZOLPIDEM 5 MG TAB PO PRN (12:39)
[2021-05-09] MEDS ORDERED: ATROPINE SULFATE 0.1 MG/ML 10ML SYRINGE IV PRN (12:39)
[2021-05-09] MEDS ORDERED: RX INFO: IV CONTRAST WAS GIVEN 1 EACH MISC MISCELLANE PRN (12:39)
--- NOTE | 2021-05-09 13:06 | CC ---
CARDIAC CATHETERIZATION REPORT INDICATION: Acute [id number]-[id number]-elevation AK. PROCEDURE NOTE: After obtaining informed consent, left heart catheterization and coronary angiogram were performed via the right radial artery using size 4 Avelina catheter and a pigtail catheter. The patient tolerated the procedure well without any obvious immediate complications. She received moderate conscious sedation. Total sedation time was 25 minutes. Radial artery access was obtained using modified Seldinger technique and catheters and glidewires were floated into the ascending aorta under fluoroscopic guidance. Procedure was completed uneventfully. FINDINGS: HEMODYNAMICS: Left ventricular end-diastolic pressure is 8 to 10 mm. There is no significant gradient across the aortic valve. LEFT VENTRICULOGRAM: Not performed. ANGIOGRAPHIC DATA: RIGHT CORONARY ARTERY: Right coronary artery is a large dominant vessel that shows mild nonobstructive disease in the proximal to midportion. LEFT MAIN CORONARY ARTERY is a normal-sized vessel and is free of stenosis. Divides into left anterior descending coronary artery and circumflex coronary artery. CIRCUMFLEX CORONARY ARTERY and its branches are free of significant stenosis. LEFT ANTERIOR DESCENDING CORONARY ARTERY: LAD shows an an ulcerated plaque in the very proximal portion, at its worst it seems to be an 80-90 percent stenosis. CONCLUSIONS: 80-90 percent ulcerated plaque in the proximal LAD. PLAN: Patient will undergo angioplasty and stent placement of the same. The on-call quality assurance tester has reviewed the angiographic data. MMODL / IJN: [id number] /
--- NOTE | 2021-05-09 13:19 | P.PCN ---
Date of Procedure: 05/09/21 Operative Findings: PERCUTANEOUS CORONARY INTERVENTION Performing physician Kermit Gonzalez M.D. Procedure performed 1. Successful stenting of the proximal left anterior descending artery using 3.5 x 18 mm Xience DOMINGUEZ with an excellent angiographic results and reduction of stenosis from 90% to 0% with JENN-3 flow Indication This is a 75-year-old female patient was admitted to the hospital with a chest discomfort and ruled in for acute coronary event. She underwent heart catheterization by Dr. Martinez and was found to have critical disease involving the proximal left anterior descending artery with an ulcerated plaque. The decision was made towards percutaneous coronary intervention Approach Right radial artery and right common femoral artery Complications None Level of sedation Moderate with a sedation length of 30 minutes Procedure description Please refer to diagnosed at heart catheterization was performed by Dr. Martinez earlier today Anticoagulation was initiated using heparin with continuous ACT monitoring throughout the case. Attempting cannulating the left main from right radial approach was unsuccessful and for that reason I decided to go from the right femoral artery. The right common femoral artery was cannulated using micropuncture technique, the micropuncture wire passed easily then I place a 6-Bhutanese sheath in the right common femoral artery. I engaged the left main coronary artery using JL3.5 guiding catheter. Subsequently I did wire the LAD using a whisper wire. After that I did balloon angioplasty using 2 5 x 12 mm balloon before I deployed 3.25 x 18 mm stent where the stent was positioned under fluoroscopy guidance and deployed under 12 karan for 20 seconds. I posterity the stent using 3.5 mm NC balloon which was inflated under 12 karan for 20 seconds. Please note that upon deploying the stent the stent came back about 2 mm and was stented across the circumflex but we have a good/JENN-3 flow across the circumflex. Postprocedure management #1 dual antiplatelet therapy #2 risk factors modification #3 aggressive cholesterol control #4 follow-up with the patient
[2021-05-09] MEDS: ACETAMINOPHEN TAB 325 MG TAB PO PRN ×2 (13:41→20:38)
[2021-05-09 18:44] VITALS: BMI 31.3
[2021-05-09] MEDS: CYANOCOBALAMIN 500 MCG TAB PO SCH (20:37)
[2021-05-09] MEDS: TICAGRELOR 90 MG TAB PO SCH (20:37)
[2021-05-09] MEDS: LACTOBACILLUS ACIDOPH & BULGAR 1 EACH PACKET PO SCH (20:38)
[2021-05-09] MEDS: ATORVASTATIN 40 MG TAB PO SCH (20:38)
[2021-05-09] MEDS: ASCORBIC ACID 500 MG TAB PO SCH (20:38)
[2021-05-09] MEDS: CHOLECALCIFEROL 25 MCG (1000 IU) TABLET PO SCH (20:38)
[2021-05-09] MEDS: ASPIRIN 81 MG PO SCH (20:38)
--- NOTE | 2021-05-09 23:06 | P.PN ---
Subjective Progress Note Date: 05/09/21 Patient was seen for a follow-up. Patient initially seen by Dr. Kenneth Pichardo. Please refer to his note for details. Patient is a 75-year-old female who has been having dizziness for past 6 months. The dizziness is not positional. It comes and goes. It does not involve when she rolls over. Denies any vertigo, it is more like lightheadedness. Patient states that she did suffer from a fall in which she hit her head a few months ago. She was vacuuming, when she stepped backward, and tripped on something and fell and hit her head on the hardwood floor. Patient believes that the dizziness have been present even before this fall. Patient was admitted with elevated cardiac enzymes. Patient underwent cardiac catheterization, in which she was found to have 80-90% ulcerated plaque in the proximal LAD. Patient underwent angioplasty and stent placement. Patient at present doing well. She has been in the bed since angioplasty. Denies dizziness. Denies any focal symptoms. Objective - Vital Signs Vital signs: Vital Signs Temp 98.2 F 05/09/21 13:00 Pulse 70 05/09/21 16:45 Resp 14 05/09/21 16:45 BP 131/74 05/09/21 16:45 Pulse Ox 97 05/09/21 16:45 Intake & Output 05/08/21 05/09/21 05/09/21 18:59 06:59 18:59 Intake Total 1192.597 400 357.12 Balance 1192.597 400 357.12 Intake: IV 160 200 0.9 Normal Saline 160 Intake, IV Titration 312.597 157.12 Amount Heparin Sod,Pork in 0.45% 312.597 157.12 NaCl 25,000 unit In 0.45 % NaCl 1 250ml.bag @ 11. 02 UNITS/KG/HR 9.997 mls/ hr IV .Q24H [facility] Rx#: [id number] Oral 720 400 Other: Voiding Method Toilet # Voids 2 1 - Exam Patient's mental status, speech and language functions are normal. Cranial nerves II through XII are intact. Visual baer are full. Extraocular muscles are intact. No nystagmus. Pupils are round and reactive to light. Face is symmetric and tongue protrudes to the midline. Hearing appears normal for routine conversation. Lower cranial nerves normal. Muscle strength is normal in the arms. No ataxia for [id number] testing. - Labs CBC & Chem 7: 05/08/21 08:11 05/08/21 08:11 Labs: Abnormal Lab Results - Last 24 Hours (Table) 05/09/21 Range/Units 07:50 APTT 42.1 H (22.0-30.0) sec Assessment and Plan Assessment: * Dizziness/lightheadedness, unclear etiology. Doubt related to neurological issue, as symptoms have been present for [address] head normal. * Coronary artery disease, status post angioplasty and stenting. * Hypertension Plan: * Computed tomography scan of head is normal. * Patient's carotid sounds are normal, no bruit. * 2-D echo revealed normal left-ventricular size. Moderate concentric LVH. Left ventricle systolic function is mild to moderately impaired with EF between 40-45%. Anterior septal hypokinesis. Septal hypokinesis, apex hypokinesis. Mild aortic valve sclerosis. Cardiology following. Patient currently on aspirin and Brilinta 90 mg twice a day. Also on Lipitor 40 mg. * Hemoglobin A1c 6.5. * Lipid panel with cholesterol 206, LDL 135, HDL 47.2 and triglycerides 117. * Patient's dizziness probably related to cardiac issues. Now the patient has undergone cardiac stenting, hopefully her symptoms will resolve. * MRI brain only if patient has persistent symptoms. This can be performed as an outpatient if the symptoms persist. Neurologically clear.
[2021-05-10] MEDS ORDERED: HEPARIN SODIUM,PORCINE 10,000 UNIT in SODIUM CHLORIDE 0.9% 1,000 ML IRRIGATION PRN (07:00)
[2021-05-10] MEDS ORDERED: HEPARIN SODIUM,PORCINE 2,500 UNIT in SODIUM CHLORIDE 0.9% 250 ML IRRIGATION PRN (07:00)
[2021-05-10 08:08] LABS: Basophils # (A) 0.1 k/uL (0-0.2); Basophils % (A) 1 %; Eosinophils # (A) 0.2 k/uL (0-0.7); Eosinophils % (A) 2 %; HCT 47.5 % (34.0-46.0); Lymphocytes % (A) 21 %; MCH 30.4 pg (25.0-35.0); MCHC 31.6 g/dL (31.0-37.0); MCV 96.3 fL (80.0-100.0); Mean Platelet Volume 6.9; Monocytes # (A) 0.5 k/uL (0-1.0); Monocytes % (A) 5 %; Neutrophils # (A) 6.8 k/uL (1.3-7.7); Neutrophils % (A) 70 %; Platelet Count 301 k/uL (150-450); RBC 4.93 m/uL (3.80-5.40); RDW 13.8 % (11.5-15.5); WBC 9.8 k/uL (3.8-10.6)
[2021-05-10 08:18] LABS: African American GFR (CKD) 74 (>60 ml/min/1.73 sqM); Anion Gap 8 mmol/L; Blood Urea Nitrogen 14 mg/dL (7-17); Calcium 9.6 mg/dL (8.4-10.2); Carbon Dioxide 25 mmol/L (22-30); Chloride 106 mmol/L (98-107); Glucose 90 mg/dL (74-99); Magnesium 2.1 mg/dL (1.6-2.3); Non-African American GFR(CKD) 64 (>60 ml/min/1.73 sqM); Potassium 4.3 mmol/L (3.5-5.1); Sodium 139 mmol/L (137-145)
[2021-05-10] MEDS: METOPROLOL TARTRATE 25 MG TAB PO SCH ×2 (08:59→22:35)
[2021-05-10] MEDS: PANTOPRAZOLE 40 MG TABLET PO SCH ×2 (08:59→17:31)
[2021-05-10] MEDS: TICAGRELOR 90 MG TAB PO SCH ×2 (08:59→22:35)
[2021-05-10] MEDS: amLODIPine 5 MG TAB PO SCH (09:00)
--- NOTE | 2021-05-10 09:07 | US ---
EXAMINATION TYPE: US lower ext pseudo artery RT DATE OF EXAM: 05/10/2021 COMPARISON: NONE CLINICAL HISTORY: status post cath, hematoma . EXAM PERFORMED: Grayscale and color Doppler duplex imaging performed of the groin, post cardiac dianne ter to assess for pseudoaneurysm. SIDE PERFORMED: Right Color and Waveform Doppler performed to assess for the presence of pseudoaneurysm; Is there ultrasound evidence of a pseudoaneurysm: no Is there evidence of AV shunting: yes, there is arterial waveforms noted in CFV with continuous flow. Is there a fluid collection present: no IMPRESSION: 1. No diagnostic evidence of pseudoaneurysm. 2. Findings are suspicious for arteriovenous shunting with arterial waveforms seen within the common femoral vein correlate clinically.
--- NOTE | 2021-05-10 09:41 | P.PN ---
Subjective This is a 75-year-old female with a past medical history of hypertension. She follows with Dr. Yanez at [place]. We're consulted for chest pain and elevated troponin. Patient presents to the emergency department on 05/07/21 with complaints of sudden onset chest pain, lightheadedness, dizziness, and feeling that she would suddenly passed out. Her blood pressure was quite elevated when she initially presented. Her initial troponin was negative, repeat troponin 0.80 and 0.78. EKG did not reveal ischemic changes she was started on intravenous h eparin and was admitted to floor. Echocardiogram revealed an EF of 4045 percent, anterior septal hypokinesis, septal hypokinesis, apex hypokinesis, mild mitral regurgitation, mild tricuspid regurgitation. Cardiac catheterization was recommended with Dr. Martinez. Patient underwent cardiac catheterization with Dr. Martinez on 05/09/21 which revealed 80-90% stenosis in the proximal LAD, mild nonobstructive disease in the proximal to mid RCA. Patient under successful PCI to proximal LAD by Dr. Gonzalez. Patient seen and examined at bedside, no acute distress. Her blood pressures have improved, however, her medication this morning was 180/74. She denies any chest pain or shortness of breath. She does have tenderness to the right groin, evidence of hematoma. EKG this morning revealed sinus rhythm, no significant ST- T wave abnormalities. She is currently maintained on aspirin 81 mg daily, atorvastatin 40 mg nightly, Brilinta 90 mg twice a day, metoprolol tartrate 25 mg twice a day GENERAL: Well-appearing, well-nourished and in no acute distress. NECK: Supple without JVD or thyromegaly. LUNGS: Breath sounds clear to auscultation bilaterally. Respiration equal and unlabored. No wheezes, rales or rhonchi. HEART: Regular rate and rhythm without murmurs, rubs or gallops. S1 and S2 heard. EXTREMITIES: Normal range of motion, no edema. No clubbing or cyanosis. Peripheral pulses intact. SKIN: warm, dry. Right groin site, clean, dry, tenderness to palpation with evidence of hematoma ASSESSMENT NSTEMI s/p PCI to proximal LAD on 05/09/21. Hypertension PLAN Ultrasound obtained on patient's Right groin which revealed no pseudoaneurysm, did reveal evidence of AV shunting noted in the common femoral vein. This was discussed with Dr. Mccurdy and Dr. Gonzalez, recommend continuing to monitor at this time. Continue dual antiplatelet therapy with Aspirin and Brilinta Case management consulted and Brilinta is covered with $3.90/month copay Will add amlodipine 5mg daily Continue statin and metoprolol tartrate Continues to monitor patient for additional 24 hours On discharge, patient would like to follow up with Dr. Yanez Nurse Practitioner note has been reviewed, I agree with a documented findings and plan of care. Patient was seen and examined. Objective - Vital Signs Vital signs: Vital Signs Temp 97.9 F 05/09/21 07:00 Pulse 68 05/09/21 07:00 Resp 17 05/09/21 07:00 BP 165/71 05/09/21 07:00 Pulse Ox 97 05/09/21 07:00 Intake & Output 05/08/21 05/09/21 05/09/21 18:59 06:59 18:59 Intake Total 1192.597 400 157.12 Balance 1192.597 400 157.12 Intake: IV 160 0.9 Normal Saline 160 Intake, IV Titration 312.597 157.12 Amount Heparin Sod,Pork in 0.45% 312.597 157.12 NaCl 25,000 unit In 0.45 % NaCl 1 250ml.bag @ 11. 02 UNITS/KG/HR 9.997 mls/ hr IV .Q24H [facility] Rx#: [id number] Oral 720 400 Other: Voiding Method Toilet # Voids 2 - Labs CBC & Chem 7: 05/10/21 07:25 05/10/21 07:25 Labs: Abnormal Lab Results - Last 24 Hours (Table) 05/08/21 05/08/21 05/09/21 Range/Units 08:11 08:11 07:50 APTT 42.1 H (22.0-30.0) sec Glucose 113 H (70-110) mg/dL Hemoglobin A1c 6.5 H (0.0-6.0) % Cholesterol 206.00 H (0.00-200.00) mg/dL LDL Cholesterol, Calc 135.4 H (0.0-131.0) mg/dL
--- NOTE | 2021-05-10 11:44 | P.PN ---
<Ty Hector - Last Filed: 05/10/21 18:07> Subjective Progress Note Date: 05/10/21 Hospital course: Patient is a very pleasant 75-year-old female with a past medical history of h ypertension whom is not taking medication as prescribed. She presented to the emergency department today with a chief complaint of sudden onset dizziness/lightheadedness and feeling as though she was suddenly going to pass out. Patient reports feeling as though all of the blood had left her body and that "I was going to leave this world." Patient states this lasted approximately 15 minutes and was followed by chest pressure and EMS was called. She reports being given 3 nitroglycerin and an aspirin by EMS which did relieve the chest pressure but also caused some nausea. 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 She denies having any headache, changes in her vision or hearing, tinnitus, palpitations, shortness of breath, dyspnea with exertion, abdominal pain, vomiting, or experiencing any numbness/tingling/weakness in her extremities. Patient was seen and fully evaluated in the emergency department. A chest x-ray was completed and negative for acute cardiopulmonary process. EKG showing sinus tachycardia at 102 bpm. CBC and BMP were unremarkable. Troponin was less than 0.012. D-dimer was borderline elevated at 0.60. Patient admitted under our services with consultation to cardiology. Troponins trended: < 0.012, 0.807, and 0.780. Echocardiogram: mild to moderately impaired EF between 40 and 45% with anteroseptal, septal, and apex hypokinesis. Neurology was also consulted secondary to persistent dizziness and placed order for MRI. Patient underwent cardiac cath and was found to have 80-90% stenosis of proximal LAD, successful stenting of the proximal left anterior descending artery was completed and patient then started on dual antiplatelet therapy wirh Brillinta and Aspirin. Physical exam: Patient seen and fully evaluated at bedside this morning. She was resting comfortably in bed. She reports mild pain in right groin remains otherwise de nies having any complaints at this time including headache, lightheadedness, dizziness, chest pain, palpitations, shortness of breath, or experiencing any numbness/tingling/weakness in her extremities. Patient scheduled to undergo MRI later this afternoon for continued persistent intermittent dizziness. Minimal area of firmness to right groin cardiac cath access site, no erythema or drainage. Cardiology ordered ultrasound to further evaluate. Vital signs reviewed and stable. General: Nontoxic, no distress and appears stated age. Derm: Skin warm and dry, normal coloration for ethnicity. Head: Atraumatic, normocephalic and symmetric. Eyes: EOMs intact, no lid lag, and anicteric sclera. No nystagmus. Mouth: no lip lesions, mucus membranes moist Cardiovascular: regular rate and rhythm with normal S1S2, no murmur, positive posterior tibial pulses bilaterally, and cap refill < 2 seconds. Lungs: Respirations even, regular, and unlabored on room air. Lungs CTA bilaterally, no rhonchi, no rales, no wheezing, and no accessory muscle usage. Abdominal: soft, nontender to palpation, no guarding, no appreciable organomegaly Ext: ROM intact. No gross muscle atrophy, no edema, no contractures Neuro: Speech clear, face symmetrical and CN II-XII grossly intact with no noted focal neuro deficits Psych: Alert and oriented to person, place, time, and situation. Appropriate and pleasant affect. Assessment and Plan of Care: NSTEMI, resulting in successful stenting of proximal LAD on 05/09/21 Dizziness/lightheadedness Elevated d-dimer Hypertension, uncontrolled -Continuation of dual antiplatelet therapy. -Cardiology following, appreciate further recommendations. -Telemetry monitoring -Echocardiogram: Revealed mild to moderately impaired EF between 40 and 45% with anteroseptal, septal, and apex hypokinesis -Orthostatic vitals negative -Cardiac diet -Continue daily Aspirin, atorvastatin, and metoprolol -Lipid profile revealed hyperlipidemia with total cholesterol of 206 and LDL of 135.4. -A1c 6.5%. -Neurology consulted secondary to persistent dizziness, ordered MRI brain to be completed this afternoon -Blood pressures better controlled CODE STATUS: Full code DVT prophylaxis: Heparin Discussed with: Patient and RN Anticipated discharge date: Tomorrow morning Anticipated discharge place: Home A total of 40 minutes was spent on the care of this complex patient more than 50% of the time was spent in counseling and care coordination. Objective - Vital Signs Vital signs: Vital Signs Temp 97.6 F 05/10/21 08:00 Pulse 72 05/10/21 08:00 Resp 18 05/10/21 08:00 BP 180/74 05/10/21 08:00 Pulse Ox 98 05/10/21 08:00 Intake & Output 05/09/21 05/10/21 05/10/21 18:59 06:59 18:59 Intake Total 357.12 500 118 Balance 357.12 500 118 Weight 90.718 kg 90.718 kg Intake: IV 200 Intake, IV Titration 157.12 Amount Heparin Sod,Pork in 0.45% 157.12 NaCl 25,000 unit In 0.45 % NaCl 1 250ml.bag @ 11. 02 UNITS/KG/HR 9.997 mls/ hr IV .Q24H MUNIRA Rx#: [id number] Oral 500 118 Other: Voiding Method Toilet # Voids 1 2 # Bowel Movements 1 - Labs CBC & Chem 7: 05/10/21 07:25 05/10/21 07:25 Labs: Abnormal Lab Results - Last 24 Hours (Table) 05/10/21 Range/Units 07:25 Hct 47.5 H (34.0-46.0) % <Alba Sears - Last Filed: 05/10/21 18:56> Subjective Ty Hector NP rendered care for this patient independently, reviewed the findings and plan as documented in the note above. I did not physically speak with or examine the patient on this date. Objective - Vital Signs Vital signs: Vital Signs Temp 98.2 F 05/10/21 14:25 Pulse 80 05/10/21 14:25 Resp 16 05/10/21 14:25 BP 146/68 05/10/21 14:25 Pulse Ox 97 05/10/21 14:25 Intake & Output 05/09/21 05/10/21 05/10/21 18:59 06:59 18:59 Intake Total 357.12 500 236 Balance 357.12 500 236 Weight 90.718 kg 90.718 kg Intake: IV 200 Intake, IV Titration 157.12 Amount Heparin Sod,Pork in 0.45% 157.12 NaCl 25,000 unit In 0.45 % NaCl 1 250ml.bag @ 11. 02 UNITS/KG/HR 9.997 mls/ hr IV .Q24H MUNIRA Rx#: [id number] Oral 500 236 Other: Voiding Method Toilet # Voids 1 2 # Bowel Movements 1 - Labs CBC & Chem 7: 05/10/21 07:25 05/10/21 07:25 Labs: Abnormal Lab Results - Last 24 Hours (Table) 05/10/21 Range/Units 07:25 Hct 47.5 H (34.0-46.0) %
--- NOTE | 2021-05-10 20:27 | MR ---
INDICATION: Patient age:Female; 75 years old; Reason for study: dizziness. COMPARISON: CT brain 05/08/2021. TECHNIQUE: Multi planar, multi sequence imaging was performed through the brain including: T1, T2, In version recovery, Diffusion weighted imaging. No gadolinium was given. FINDINGS: There are 3 foci of increased signal on diffusion-weighted imaging seen on series 303 image 168 and image 104 with subtle low ADC signal located in the right frontal lobe and bilateral occipit al lobe. Additional area of restricted diffusion within the right cerebellum posteriorly. The ventricular system, and cisterns appear unremarkable. Midline structures show no abnormality. The bone marrow signal is within normal limits. The paranasal sinuses and globes are unremarkable. IMPRESSION: Acute/subacute microinfarcts of the right posterior cerebellum, right frontal lobe and bilateral occi pital lobes. This is suspicious for embolic phenomenon given the multiple vascular distribution.
--- NOTE | 2021-05-10 20:54 | US ---
EXAMINATION TYPE: US carotid duplex BILAT DATE OF EXAM: 05/10/2021 COMPARISON: CT, MR CLINICAL HISTORY: CVA. CVA per order. EXAM MEASUREMENTS: RIGHT: Peak Systolic Velocity (PSV) cm/sec ----- Right CCA: 77.1 ----- Right ICA: 343.3 ----- Right ECA: 289.7 ICA/CCA ratio: 4.5 RIGHT: End Diastole cm/sec ----- Right CCA: 17.6 ----- Right ICA: 70.8 ----- Right ECA: 14.0 LEFT: Peak Systolic Velocity (PSV) cm/sec ----- Left CCA: 101.1 ----- Left ICA: 178.0 ----- Left ECA: 207.9 ICA/CCA ratio: 1.8 LEFT: End Diastole cm/sec ----- Left CCA: 16.9 ----- Left ICA: 33.9 ----- Left ECA: 15.6 VERTEBRALS (direction of flow): Right Vertebral: Antegrade Left Vertebral: Antegrade Rhythm: Normal Plaque seen within right CCA, rt bulb, and rt ICA. Elevated velocities within rt prox ICA, mid ICA, a nd rt ECA. Plaque seen within left CCA, lt bulb, and lt ICA. Elevated velocities within lt prox ICA, mid ICA, bu lb, and lt ECA. Limited exam due to tortuous vessels. ICA/CCA ratio was 4.5 on the right and 1.8 on the left. IMPRESSION: 1. Greater than 70% stenosis of the right carotid bifurcation. 2. Less than 50% stenosis of the left carotid bifurcation. Criteria for Assigning % of Stenosis / Diameter reduction (Estimation based on the indirect measurements of the internal carotid artery velocities (ICA PSV). 1. Normal (no stenosis)=ICA PSV < 125 cm/s: ratio < 2.0: ICA EDV<40 cm/s. 2. Less than 50% stenosis=ICA PSV < 125 cm/s: ratio < 2.0: ICA EDV<40 cm/s. 3. 50 to 69% stenosis=ICA PSV of 125 to 230 cm/s: ration 2.0 ? 4.0: ICA EDV 40-100 cm/s. 4. Greater than 70% stenosis to near occlusion= ICA PSV > 230 cm/s: ratio > 4.0: ICA EDV > 100 cm/s. 5. Near occlusion= ICA PSV velocities may be low or undetectable: variable ratio and ICA EDV. 6. Total occlusion=unable to detect flow.
[2021-05-10] MEDS: ASPIRIN 81 MG PO SCH (22:34)
[2021-05-10] MEDS: ATORVASTATIN 40 MG TAB PO SCH (22:34)
[2021-05-10] MEDS: ASCORBIC ACID 500 MG TAB PO SCH (22:34)
[2021-05-10] MEDS: CHOLECALCIFEROL 25 MCG (1000 IU) TABLET PO SCH (22:34)
[2021-05-10] MEDS: CYANOCOBALAMIN 500 MCG TAB PO SCH (22:35)
[2021-05-10] MEDS: LACTOBACILLUS ACIDOPH & BULGAR 1 EACH PACKET PO SCH (22:35)
[2021-05-10] MEDS: ACETAMINOPHEN TAB 325 MG TAB PO PRN (22:36)
--- NOTE | 2021-05-10 23:02 | P.PN ---
Subjective Progress Note Date: 05/10/21 05/10/2021: Patient states that she has not had "real bad dizzy spells". Patient had telemetry monitoring, in which she had sinus rhythm, sinus bradycardia with some PVCs and PACs. No other arrhythmia. Patient had undergone MRI of the brain, which on my review revealed evidence of 3 small (tiny) areas of infarction. 05/09/2021: Patient was seen for a follow-up. Patient initially seen by Dr. Kenneth Pichardo. Please refer to his note for details. Patient is a 75-year-old female who has been having dizziness for past 6 months. The dizziness is not positional. It comes and goes. It does not involve when she rolls over. Denies any vertigo, it is more like lightheadedness. Patient states that she did suffer from a fall in which she hit her head a few months ago. She was vacuuming, when she stepped backward, and tripped on something and fell and hit her head on the hardwood floor. Patient believes that the dizziness have been present even before this fall. Patient was admitted with elevated cardiac enzymes. Patient underwent cardiac catheterization, in which she was found to have 80-90% ulcerated plaque in the proximal LAD. Patient underwent angioplasty and stent placement. Patient at present doing well. She has been in the bed since angioplasty. Denies dizziness. Denies any focal symptoms. Objective - Vital Signs Vital signs: Vital Signs Temp 98.2 F 05/10/21 14:25 Pulse 80 05/10/21 14:25 Resp 16 05/10/21 14:25 BP 146/68 05/10/21 14:25 Pulse Ox 97 05/10/21 14:25 Intake & Output 05/09/21 05/10/21 05/10/21 18:59 06:59 18:59 Intake Total 357.12 500 236 Balance 357.12 500 236 Weight 90.718 kg 90.718 kg Intake: IV 200 Intake, IV Titration 157.12 Amount Heparin Sod,Pork in 0.45% 157.12 NaCl 25,000 unit In 0.45 % NaCl 1 250ml.bag @ 11. 02 UNITS/KG/HR 9.997 mls/ hr IV .Q24H MUNIRA Rx#: [id number] Oral 500 236 Other: Voiding Method Toilet # Voids 1 2 # Bowel Movements 1 - Exam Patient's mental status, speech and language functions are normal. Cranial nerves II through XII are intact. Visual baer are full. Extraocular muscles are intact. No nystagmus. Pupils are round and reactive to light. Face is symmetric and tongue protrudes to the midline. Hearing appears normal for routine conversation. Lower cranial nerves normal. Muscle strength is normal in the arms. No ataxia for [id number] testing. - Labs CBC & Chem 7: 05/10/21 07:25 05/10/21 07:25 Labs: Abnormal Lab Results - Last 24 Hours (Table) 05/10/21 Range/Units 07:25 Hct 47.5 H (34.0-46.0) % Assessment and Plan Assessment: * Dizziness/lightheadedness, unclear etiology. MRI of the brain revealed acute/subacute microinfarcts of the right posterior cerebellum, right frontal lobe and bilateral occipital lobes. This is suspicious for embolic phenomenon given multiple vascular distribution. * Coronary artery disease, status post angioplasty and stenting. * Hypertension Plan: * MRI of the brain without contrast revealed acute/subacute microinfarcts of the right posterior cerebellum, right frontal lobe and bilateral occipital lobes. This is suspicious for embolic phenomenon, given multiple vascular dis tribution. I personally reviewed MRI on the computer and agree with the findings. Uncertain if related to recent cardiac catheterization, or independent cardio-embolic phenomenon. Consider transesophageal echocardiogram and loop recorder. Cardiology on board. * Carotid ultrasound was performed today, which revealed greater than 70% stenosis of the right carotid bifurcation. Less than 50% stenosis of the left carotid bifurcation. Antegrade flow in both vertebral arteries. Suggest vascular surgical consultation. * 2-D echo revealed normal left-ventricular size. Moderate concentric LVH. Left ventricle systolic function is mild to moderately impaired with EF between 40-45%. Anterior septal hypokinesis. Septal hypokinesis, apex hypokinesis. Mild aortic valve sclerosis. Cardiology following. Patient currently on aspirin and Brilinta 90 mg twice a day. Also on Lipitor 40 mg. * Hemoglobin A1c 6.5. * Lipid panel with cholesterol 206, LDL 135, HDL 47.2 and triglycerides 117. * Continue telemetry monitoring.
[2021-05-11] MEDS: METOPROLOL TARTRATE 25 MG TAB PO SCH ×2 (09:00→21:07)
[2021-05-11] MEDS: TICAGRELOR 90 MG TAB PO SCH ×2 (09:00→21:06)
[2021-05-11] MEDS: PANTOPRAZOLE 40 MG TABLET PO SCH ×2 (09:00→17:20)
[2021-05-11] MEDS: amLODIPine 5 MG TAB PO SCH (09:00)
--- NOTE | 2021-05-11 10:53 | P.PN ---
Subjective This is a 75-year-old female with a past medical history of hypertension. She follows with Dr. Yanez at [place]. We're consulted for chest pain and elevated troponin. Patient presents to the emergency department on 05/07/21 with complaints of sudden onset chest pain, lightheadedness, dizziness, and feeling that she would suddenly passed out. Her blood pressure was quite elevated when she initially presented. Her initial troponin was negative, repeat troponin 0.80 and 0.78. EKG did not reveal ischemic changes she was started on intravenous h eparin and was admitted to floor. Echocardiogram revealed an EF of 4045 percent, anterior septal hypokinesis, septal hypokinesis, apex hypokinesis, mild mitral regurgitation, mild tricuspid regurgitation. Cardiac catheterization was recommended with Dr. Martinez. Patient underwent cardiac catheterization with Dr. Martinez on 05/09/21 which revealed 80-90% stenosis in the proximal LAD, mild nonobstructive disease in the proximal to mid RCA. Patient under successful PCI to proximal LAD by Dr. Gonzalez. 05/10/20 Patient with tenderness to the right groin, evidence of hematoma after cardiac catheterization. Ultrasound obtained on patient's Right groin which revealed no pseudoaneurysm, did reveal evidence of AV shunting noted in the common femoral vein. This was discussed with Dr. Mccurdy and Dr. Gonzalez, recommend continuing to monitor at this time. 05/11/20 Patient seen and examined at bedside. She denies any chest pain, shortness of breath, lightheadedness, dizziness or weakness. No focal symptoms. Her groin site has improved, continues to have some swelling, but improved, no longer pain or tenderness MRI brain revealed acute/subacute microinfarcts of the right posterior cerebellum, right frontal lobe and bilateral occipital lobes. Suspicious for embolic phenomenon Carotid Dopplers revealed greater than 70% stenosis in the right carotid bifurcation. She is currently maintained on aspirin 81 mg daily, atorvastatin 40 mg nightly, Brilinta 90 mg twice a day, metoprolol tartrate 25 mg twice a day GENERAL: Well-appearing, well-nourished and in no acute distress. NECK: Supple without JVD or thyromegaly. LUNGS: Breath sounds clear to auscultation bilaterally. Respiration equal and unlabored. No wheezes, rales or rhonchi. HEART: Regular rate and rhythm without murmurs, rubs or gallops. S1 and S2 heard. EXTREMITIES: Normal range of motion, no edema. No clubbing or cyanosis. Per ipheral pulses intact. SKIN: warm, dry. Right groin site, clean, dry, swelling noted, tenderness has resolved ASSESSMENT NSTEMI s/p PCI to proximal LAD on 05/09/21. Hypertension Ischemic cardiomyopathy AV shunting noted in the common femoral vein after cardiac catheterization, improving Carotid stenosis, left Acute/subacute microinfarcts of the right posterior cerebellum, right frontal lobe and bilateral occipital lobes. This is suspicious for embolic phenomenon given multiple vascular distribution. Seen on MRI PLAN Unclear if patient's microinfarcts were caused by cardiac catheterization vs prior event Increase atorvastatin to 80mg daily At this time we do not recommend EDITA inpatient, we do recommend 30 day event monitor first prior to a loop recorder implantation Continue dual antiplatelet therapy with Aspirin and Brilinta Case management consulted and Brilinta is covered with $3.90/month copay Continue amlodipine and metoprolol tartrate Neurology following On discharge, patient would like to follow up with her pv installer tech Dr. Yanez Nurse Practitioner note has been reviewed, I agree with a documented findings and plan of care. Patient was seen and examined. Objective - Vital Signs Vital signs: Vital Signs Temp 97.5 F L 05/11/21 07:20 Pulse 69 05/11/21 07:20 Resp 15 05/11/21 07:20 BP 156/75 05/11/21 07:20 Pulse Ox 98 05/11/21 07:20 Intake & Output 05/10/21 05/11/21 05/11/21 18:59 06:59 18:59 Intake Total 236 180 Balance 236 180 Weight 90.718 kg Intake: Oral 236 180 Other: Voiding Method Toilet # Voids 1 - Labs CBC & Chem 7: 05/10/21 07:25 05/10/21 07:25
--- NOTE | 2021-05-11 11:08 | P.GSCN ---
History of Present Illness Consult date: 05/11/21 Reason for Consult: Carotid stenosis Requesting physician: Alba Sears History of present illness: This is a 75-year-old female who presented to the emergency department on 05/07/2021 with complaints of chest pain and pressure. She has a past medical history of hypertension, however was not taking her medication as prescribed. She also was with complaints of dizziness and lightheadedness although patient states she has had dizziness over the last 2 years duration. However prior to coming into the emergency room she said she felt more of an acute onset of the dizziness where she thought she was going to pass out. She denies any focal deficits such as visiom loss, difficulty with speech, extremity weakness, or facial asymmetry. Initially the patient was seen by cardiology who scheduled her for a cardiac stress test that showed 8990% plaque of the proximal LAD. On 05/09/2021 she underwent stent placement. Neurology was consulted for complaints of dizziness. They did a CT of the brain that was negative for any acute findings. They also ordered an MRI Of the brain that showed acute/subacute microinfarcts of the right posterior cerebellum, right frontal lobe and bilateral occipital lobes. This is suspicious for embolic phenomenon given the multiple vascular distribution. A carotid ultrasound was ordered as well by neurology showing greater than 70% stenosis of the right ICA, left ICA with less than 50%. Vascular surgery was consulted for right ICA stenosis. The patient currently denies any shortness of breath, chest pain, dizziness, focal deficits, nausea, vomiting, fevers or chills. She is currently on dual antiplatelet therapy with Brilinta 90 mg twice a day and aspirin 81 mg daily. Neurology started patient on high-dose statin Lipitor 80 mg daily. Neurology is looking at possibility of MRI findings possibly related to recent cardiac catheterization or independent cardioembolic phenomenon. They are recommending transesophageal echocardiogram and loop recorder. The patient was also evaluated for possible right lower extremity pseudo- aneurysm. Doppler of the right lower extremity revealed no evidence of pseudoaneurysm. Findings are suspicious for arteriovenous shunting with arterial waveforms seen within the common femoral vein, correlate clinically. Cardiology is following. Review of Systems A 14 point review of systems was completed all pertinent positives and negatives as stated in the HPI. 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 Past Alcohol Use History: None Reported Past Drug Use History: None Reported - Past Family History Father Family Medical History: No Reported History Mother History Unknown: Yes Medications and Allergies Home Medications Medication Instructions Recorded Confirmed Type Aspirin EC [Ecotrin Low Dose] 81 mg PO HS 06/10/15 05/07/21 History Ascorbic Acid [Vitamin C] 1,000 mg PO HS 05/07/21 05/07/21 History Cholecalciferol [Vitamin D3 (25 25 mcg PO HS 05/07/21 05/07/21 History Mcg = 1000 Iu)] Cyanocobalamin (Vitamin B-12) 1,000 mcg PO HS 05/07/21 05/07/21 History [Vitamin B-12] L.acidoph,Paracasei, B.lactis 1 cap PO HS 05/07/21 05/07/21 History [Probiotic] Ubidecarenone [Co Q-10] 100 mg PO HS 05/07/21 05/07/21 History Ticagrelor [Brilinta] 90 mg PO BID 30 Days #60 tab 05/09/21 Rx Allergies Allergy/AdvReac Type Severity Reaction Status Date / Time codeine AdvReac dizziness Verified 05/07/21 16:45 Surgical - Exam Vital Signs Pulse Resp 100 23 05/07/21 14:31 05/07/21 14:31 General appearance: The patient is alert, oriented, appears in no acute distress. HET: Head is normocephalic and atraumatic. Pupils are equal and reactive. Neck: Supple without lymphadenopathy. Trachea midline. No audible carotid bruit. Heart: S1 S2. Regular rate and rhythm. Lungs: Clear to auscultation bilaterally. Abdomen: Soft, nontender, nondistended. Extremities: Normal skin color and turgor. No cyanosis, rash, ulceration, clubbing, or edema. Radial and pedal pulses are 2/4 bilaterally. Neurological: No focal deficits. Strength and sensation are grossly intact. Results - Labs 05/10/21 07:25 05/10/21 07:25 Abnormal Lab Results - Last 24 Hours (Table) 05/10/21 Range/Units 07:25 Hct 47.5 H (34.0-46.0) % Diabetes panel 05/10/21 Range/Units 07:25 Sodium 139 (137-145) mmol/L Potassium 4.3 (3.5-5.1) mmol/L Chloride 106 (98-107) mmol/L Carbon Dioxide 25 (22-30) mmol/L BUN 14 (7-17) mg/dL Creatinine 0.90 (0.52-1.04) mg/dL Glucose 90 (74-99) mg/dL Calcium 9.6 (8.4-10.2) mg/dL Calcium panel 05/10/21 Range/Units 07:25 Calcium 9.6 (8.4-10.2) mg/dL Pituitary panel 05/10/21 Range/Units 07:25 Sodium 139 (137-145) mmol/L Potassium 4.3 (3.5-5.1) mmol/L Chloride 106 (98-107) mmol/L Carbon Dioxide 25 (22-30) mmol/L BUN 14 (7-17) mg/dL Creatinine 0.90 (0.52-1.04) mg/dL Glucose 90 (74-99) mg/dL Calcium 9.6 (8.4-10.2) mg/dL Adrenal panel 05/10/21 Range/Units 07:25 Sodium 139 (137-145) mmol/L Potassium 4.3 (3.5-5.1) mmol/L Chloride 106 (98-107) mmol/L Carbon Dioxide 25 (22-30) mmol/L BUN 14 (7-17) mg/dL Creatinine 0.90 (0.52-1.04) mg/dL Glucose 90 (74-99) mg/dL Calcium 9.6 (8.4-10.2) mg/dL - Imaging Comments: Carotid duplex: Right ICA PSV 343, ICA/CCA ratio 4.5 left ICA PSV 178, ICA/CCA ratio 1.8. Impression greater than 70% stenosis of the right carotid bifurcation with less than 50% stenosis of the left carotid bifurcation MRI of the brain: Acute/subacute microinfarcts of the right posterior cerebellum, right frontal lobe and bilateral occipital lobes. Suspicious for embolic phenomenon given the multiple vascular distribution. Chest CTA no evidence of pulmonary embolism. Mild interstitial infiltrates at the posterior lung bases. This could be some mild pulmonary fibrosis. No suspicious pulmonary mass. Brain CT: No acute abnormality. Age-related changes of atrophy and probable chronic small vessel ischemia. Echocardiogram: Moderate concentric left ventricular hypertrophy. Ventricular systolic function Mild to moderately impaired, EF between 40-45%. Anteroseptal hypokinesis, septal hypokinesis, apex hypokinesis, mild aortic valve sclerosis, mild mitral regurgitation, mild tricuspid regurgitation, echo free space indicative of a pericardial fat pad Assessment and Plan Assessment: 1. Hemodynamically significant right ICA stenosis, greater than 70% per carotid ultrasound 2. Acute/subacute microinfarcts of the right posterior cerebellum, right frontal lobe and bilateral occipital lobes. Suspicious for embolic phenomenon as seen on MRI of the brain 3. Dizziness 4. NSTEMI status post PCI to proximal LAD on 05/09/2021 5. Hypertension Plan: 1. Continue with aspirin, Brilinta, statin 2. CT angiogram head and neck ordered 3. Await further recommendations from neurology 4. Further recommendations forthcoming from vascular surgeon Thank you for this consultation, and allowing us take part in the plan of care of your patient during his hospital stay. The impression and plan of care has been dictated as directed. Dr. Valdez I performed a history and examination of this patient, discussed the same with the dictator. I agree with the dictator's note ,documented as a scribe. Any additional findings or plans will be noted.
--- NOTE | 2021-05-11 11:58 | CT ---
EXAMINATION TYPE: CT angio head neck DATE OF EXAM: 05/11/2021 HISTORY: ica stenosis, tia COMPARISON: Carotid ultrasound from yesterday CT DLP: 348.3 mGycm. Automated Exposure Control for Dose Reduction was Utilized. TECHNIQUE: CTA scan of the head and neck are performed with IV Contrast, patient injected with 65 mL of Isovue 370, axial images are obtained, coronal and sagittal reformatted images are reviewed. 3D r econstructed images are created on an independent workstation and reviewed. FINDINGS: Carotid/Vascular Structures: Mild peripheral plaque in the aortic arch. Normal three-vessel origin fr om the aortic arch with mild to moderate peripheral plaque with no significant stenosis. Normal origi n right common carotid artery from the right brachiocephalic artery. There is mild calcified plaque along the course of the right common carotid artery. There is more sev ere mixed plaque at the right carotid bulb extending into proximal internal carotid artery, it is mor e calcified proximally and noncalcified distally, it is causing significant stenosis as suspected on ultrasound one day earlier. Lumen diameter narrowed to 1.8 mm with reconstitution to 5.2 mm superior to this. This is confirmed on raw data axial image 409. Significant stenosis of origin of right exter nal carotid artery is also likely present. Mild to moderate mixed plaque along the course of the left common carotid artery with more severe laurence que in left carotid bulb extending into left internal/external carotid arteries. Significant stenosis at origin of left external carotid artery is thought present. There is densely calcified plaque at o rigin of the left internal carotid artery on raw data images difficult to exclude a significant steno sis reference images 389 through 400. There is blooming artifact from densely calcified plaque noted making accurate evaluation difficult. The vertebral arteries are patent to the basilar junction. Right vertebral artery noted dominant. No significant focal stenosis or aneurysm in the posterior circulation. There is small caliber but paten t right posterior communicating artery. There is hypoplastic left posterior communicating artery. The re is small caliber but patent anterior communicating artery. Mild to moderate peripheral calcified p laque in the distal internal carotid arteries bilaterally. No focal aneurysm in the anterior circulat ion. No significant stenosis. Short segment right middle cerebral artery with trifurcation, tortuous course mimics abrupt cut off on raw data images. Other: Moderate spurring and disc space narrowing C5-C6 and C6-C7 levels. Nasal septum is deviated to right of midline. IMPRESSION: Confirmation of hemodynamically significant stenosis proximal right internal carotid tanya ry measuring near 65%. Suspect significant focal stenosis on the left right at the origin of the left internal carotid artery is thought present. Consider direct catheter angiogram to further evaluate b oth and/or possibly treat. NASCET criteria was used in interpretation of this exam?
--- NOTE | 2021-05-11 12:44 | P.PN ---
Subjective Progress Note Date: 05/11/21 Constitutional: No acute distress, conversant, pleasant Eyes: Anicteric sclerae, moist conjunctiva, no lid-lag PERRLA ENMT: NC/AT Oropharynx clear, no erythema, exudates Neck: Supple, FROM, no masses, or JVD No carotid bruits No thyromegaly Lungs: Clear to auscultation Clear to percussion Normal respiratory effort, no accessory muscle use Cardiovascular: Heart regular in rate and rhythm, No murmurs, gallops, or rubs No peripheral edema Abdominal: Soft Nontender, no guarding, rebound or rigidity Abdomen moving with respiration Normoactive bowel sounds No hepatomegaly, No splenomegaly No palpable mass No abdominal wall hernia noted Skin: Normal temperature, tone, texture, turgor No induration No subcutaneous nodules No rash, lesions No ulcers Extremities: No digital cyanosis No clubbing Pedal pulses intact and symmetrical Radial pulses intact and symmetrical Normal gait and station No calf tenderness Psychiatric:Alert and oriented to person, place and time Appropriate affect Intact judgement Neuro: Muscles Strength 5/5 in all 4 extremities Sensation to light touch grossly present throughout Cranial nerves II-XII grossly intact No focal sensory deficits CVA stable We'll continue to monitor overnight NSTEMI, resulting in successful stenting of proximal LAD on 05/09/21 Dizziness/lightheadedness Elevated d-dimer Hypertension, uncontrolled -Continuation of dual antiplatelet therapy. -Cardiology following, appreciate further recommendations. -Telemetry monitoring -Echocardiogram: Revealed mild to moderately impaired EF between 40 and 45% with anteroseptal, septal, and apex hypokinesis -Orthostatic vitals negative -Cardiac diet -Continue daily Aspirin, atorvastatin, and metoprolol -Lipid profile revealed hyperlipidemia with total cholesterol of 206 and LDL of 135.4. -A1c 6.5%. -Neurology consulted secondary to persistent dizziness, ordered MRI brain to be completed this afternoon -Blood pressures better controlled CODE STATUS: Full code DVT prophylaxis: Heparin Discussed with: Patient and RN Anticipated discharge date: Tomorrow morning Anticipated discharge place: Home Objective - Vital Signs Vital signs: Vital Signs Temp 97.5 F L 05/11/21 07:20 Pulse 69 05/11/21 07:20 Resp 15 05/11/21 07:20 BP 156/75 05/11/21 07:20 Pulse Ox 98 05/11/21 07:20 Intake & Output 05/10/21 05/11/21 05/11/21 18:59 06:59 18:59 Intake Total 236 180 Balance 236 180 Weight 90.718 kg Intake: Oral 236 180 Other: Voiding Method Toilet # Voids 1 - Labs CBC & Chem 7: 05/10/21 07:25 05/10/21 07:25
[2021-05-11] MEDS ORDERED: ATORVASTATIN 80 MG TAB PO SCH (21:00)
[2021-05-11] MEDS: CYANOCOBALAMIN 500 MCG TAB PO SCH (21:06)
[2021-05-11] MEDS: ASCORBIC ACID 500 MG TAB PO SCH (21:06)
[2021-05-11] MEDS: ASPIRIN 81 MG PO SCH (21:06)
[2021-05-11] MEDS: CHOLECALCIFEROL 25 MCG (1000 IU) TABLET PO SCH (21:07)
[2021-05-11] MEDS: ACETAMINOPHEN TAB 325 MG TAB PO PRN (21:07)
[2021-05-11] MEDS: LACTOBACILLUS ACIDOPH & BULGAR 1 EACH PACKET PO SCH (21:07)
--- NOTE | 2021-05-12 00:06 | P.PN ---
Subjective Progress Note Date: 05/11/21 05/11/2021: Patient is sitting in the recliner. Complaining of chest pain pointing to the sternal region, also complaining of dizziness. States she is not feeling well. Cardiology has adjusted her medications. Denies any focal symptoms. 05/10/2021: Patient states that she has not had "real bad dizzy spells". Patient had telemetry monitoring, in which she had sinus rhythm, sinus bradycardia with some PVCs and PACs. No other arrhythmia. Patient had undergone MRI of the brain, which on my review revealed evidence of 3 small (tiny) areas of infarction. 05/09/2021: Patient was seen for a follow-up. Patient initially seen by Dr. Kenneth Pichardo. Please refer to his note for details. Patient is a 75-year-old female who has been having dizziness for past 6 months. The dizziness is not positional. It comes and goes. It does not involve when she rolls over. Denies any vertigo, it is more like lightheadedness. Patient states that she did suffer from a fall in which she hit her head a few months ago. She was vacuuming, when she stepped backward, and tripped on something and fell and hit her head on the hardwood floor. Patient believes that the dizziness have been present even before this fall. Patient was admitted with elevated cardiac enzymes. Patient underwent cardiac catheterization, in which she was found to have 80-90% ulcerated plaque in the proximal LAD. Patient underwent angioplasty and stent placement. Patient at present doing well. She has been in the bed since angioplasty. Denies dizziness. Denies any focal symptoms. Objective - Vital Signs Vital signs: Vital Signs Temp 98.4 F 05/11/21 14:00 Pulse 83 05/11/21 14:00 Resp 15 05/11/21 14:00 BP 143/70 05/11/21 14:00 Pulse Ox 97 05/11/21 14:00 Intake & Output 05/11/21 05/11/21 05/12/21 06:59 18:59 06:59 Intake Total 180 180 Balance 180 180 Intake: Oral 180 180 Other: Voiding Method Toilet Toilet # Voids 1 1 - Exam Patient's mental status, speech and language functions are normal. Cranial nerves II through XII are intact. Visual baer are full. Extraocular muscles are intact. No nystagmus. Pupils are round and reactive to light. Face is symmetric and tongue protrudes to the midline. Hearing appears normal for routine conversation. Lower cranial nerves normal. Muscle strength shows no pronator drift. Her strength is normal in the arms. No ataxia for [id number] testing. - Labs CBC & Chem 7: 05/10/21 07:25 05/10/21 07:25 Assessment and Plan Assessment: * Dizziness/lightheadedness, unclear etiology. MRI of the brain revealed acute/subacute microinfarcts of the right posterior cerebellum, right frontal lobe and bilateral occipital lobes. This is suspicious for embolic phenomenon given multiple vascular distribution. * Coronary artery disease, status post angioplasty and stenting. * Right ICA stenosis * Hypertension Plan: * Patient seen by vascular surgery for right ICA stenosis. CTA of head and neck was performed today which revealed confirmation of hemodynamically significant stenosis proximal right ICA measuring near 65%. Suspect significant focal stenosis on the left side, right at the origin of the left ICA is thought present. Consider direct catheter angiogram to further evaluate both and/or possibly treat. Await final recommendation from vascular surgery. * MRI of the brain without contrast revealed acute/subacute microinfarcts of the right posterior cerebellum, right frontal lobe and bilateral occipital lobes. This is suspicious for embolic phenomenon, given multiple vascular distrib ution. I personally reviewed MRI on the computer and agree with the findings. As these emboli are very small, suggest shower from cholesterol plaque, perhaps related to recent catheterization. Consider transesophageal echocardiogram, if recommended by cardiology. Cardiology on board. * Carotid ultrasound was performed today, which revealed greater than 70% stenosis of the right carotid bifurcation. Less than 50% stenosis of the left carotid bifurcation. Antegrade flow in both vertebral arteries. * 2-D echo revealed normal left-ventricular size. Moderate concentric LVH. Left ventricle systolic function is mild to moderately impaired with EF between 40-45%. Anterior septal hypokinesis. Septal hypokinesis, apex hypokinesis. Mild aortic valve sclerosis. Cardiology following. Patient currently on aspirin and Brilinta 90 mg twice a day. * Hemoglobin A1c 6.5. * Lipid panel with cholesterol 206, LDL 135, HDL 47.2 and triglycerides 117. Continue Lipitor 80 mg daily. * Telemetry monitoring so far showing sinus rhythm, with some PVCs. No other arrhythmia.
[2021-05-12 04:32] VITALS: PULSE 68; RESP 17
[2021-05-12 07:56] VITALS: BP 151/73; TEMP 98
[2021-05-12] MEDS: METOPROLOL TARTRATE 25 MG TAB PO SCH (08:52)
[2021-05-12] MEDS: PANTOPRAZOLE 40 MG TABLET PO SCH (08:52)
[2021-05-12] MEDS: TICAGRELOR 90 MG TAB PO SCH (08:52)
[2021-05-12] MEDS: amLODIPine 5 MG TAB PO SCH (08:52)
--- NOTE | 2021-05-12 10:06 | P.DS ---
Providers Date of admission: 05/08/21 18:22 Attending physician: Alba Sears DO Consults: 05/07/21 17:11 Consult Physician Urgent Consulting Provider: Heriberto Martinez Consult Reason/Comments: Unstable angina New-onset Do you want consulting provider notified?: Yes 05/08/21 09:13 Consult Physician Routine Consulting Provider: Jomar Pichardo Consult Reason/Comments: intractable dizziness Do you want consulting provider notified?: Already Contacted 05/09/21 12:40 Consult Physician Routine Consulting Provider: [facility] Consult Reason/Comments: Post Interventional patient Do you want consulting provider notified?: Already Contacted 05/10/21 23:06 Consult Physician Routine Consulting Provider: La Nena Valdez Consult Reason/Comments: RIght ICA stenosis >70 % Do you want consulting provider notified?: Yes Primary care physician: Saurav Rowell Hospital Course: 75-year-old female admitted to the hospital with non-ST elevation FL did have a cardiac cath and stent Patient also did have an 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 Also patient did have 70% carotid artery stenosis Patient will be scheduled to have surgery as an outpatient has been evaluated by vascular here Constitutional: No acute distress, conversant, pleasant Eyes: Anicteric sclerae, moist conjunctiva, no lid-lag PERRLA ENMT: NC/AT Oropharynx clear, no erythema, exudates Neck: Supple, FROM, no masses, or JVD No carotid bruits No thyromegaly Lungs: Clear to auscultation Clear to percussion Normal respiratory effort, no accessory muscle use Cardiovascular: Heart regular in rate and rhythm, No murmurs, gallops, or rubs No peripheral edema Abdominal: Soft Nontender, no guarding, rebound or rigidity Abdomen moving with respiration Normoactive bowel sounds No hepatomegaly, No splenomegaly No palpable mass No abdominal wall hernia noted Skin: Normal temperature, tone, texture, turgor No induration No subcutaneous nodules No rash, lesions No ulcers Extremities: No digital cyanosis No clubbing Pedal pulses intact and symmetrical Radial pulses intact and symmetrical Normal gait and station No calf tenderness Psychiatric:Alert and oriented to person, place and time Appropriate affect Intact judgement Neuro: Muscles Strength 5/5 in all 4 extremities Sensation to light touch grossly present throughout Cranial nerves II-XII grossly intact No focal sensory deficits Discharge plan Embolic CVA Non-ST elevation FL status post stents follow-up with cardiology as an outpatient Carotid artery stenosis follow-up with vascular for possible surgery as an outpatient Patient Condition at Discharge: Stable Plan - Discharge Summary Discharge Rx Participant: Yes New Discharge Prescriptions: New Ticagrelor [Brilinta] 90 mg PO BID 30 Days #60 tab Metoprolol Tartrate [Lopressor] 25 mg PO BID 30 Days #60 tab amLODIPine [Norvasc] 5 mg PO DAILY 30 Days #30 tab Pantoprazole [Protonix] 40 mg PO AC-BID 30 Days #60 tab Pravastatin Sodium 80 mg PO DAILY 30 Days #30 tab Continue Aspirin EC [Ecotrin Low Dose] 81 mg PO HS Ubidecarenone [Co Q-10] 100 mg PO HS L.acidoph,Paracasei, B.lactis [Probiotic] 1 cap PO HS Cyanocobalamin (Vitamin B-12) [Vitamin B-12] 1,000 mcg PO HS Cholecalciferol [Vitamin D3 (25 Mcg = 1000 Iu)] 25 mcg PO HS Ascorbic Acid [Vitamin C] 1,000 mg PO HS Discharge Medication List Aspirin EC [Ecotrin Low Dose] 81 mg PO HS 06/10/15 [History] Ascorbic Acid [Vitamin C] 1,000 mg PO HS 05/07/21 [History] Cholecalciferol [Vitamin D3 (25 Mcg = 1000 Iu)] 25 mcg PO HS 05/07/21 [History] Cyanocobalamin (Vitamin B-12) [Vitamin B-12] 1,000 mcg PO HS 05/07/21 [History] L.acidoph,Paracasei, B.lactis [Probiotic] 1 cap PO HS 05/07/21 [History] Ubidecarenone [Co Q-10] 100 mg PO HS 05/07/21 [History] Ticagrelor [Brilinta] 90 mg PO BID 30 Days #60 tab 05/09/21 [Rx] Metoprolol Tartrate [Lopressor] 25 mg PO BID 30 Days #60 tab 05/12/21 [Rx] Pantoprazole [Protonix] 40 mg PO AC-BID 30 Days #60 tab 05/12/21 [Rx] Pravastatin Sodium 80 mg PO DAILY 30 Days #30 tab 05/12/21 [Rx] amLODIPine [Norvasc] 5 mg PO DAILY 30 Days #30 tab 05/12/21 [Rx] Follow up Appointment(s)/Referral(s): Saurav Rowell MD [Primary Care Provider] - 1-2 days Pete Yanez MD [REFERRING] - 1 Week La Nena Valdez DO [STAFF PHYSICIAN] - 2 Weeks Patient Instructions/Handouts: Right Heart Catheterization (DC), After Radial Heart Catheterization (GEN) Activity/Diet/Wound Care/Special Instructions: Cardiology Instructions After Cardiac Catheterization with Stent Placement: 1. Aspirin as anti-platelet therapy - Aspirin lessens the chance of heart attack and stroke. It helps prevent blood clots from forming, allowing the blood to flow more easily. Each day, you will take one 81 mg (non-enteric coated) tablet daily. You will be taking aspirin as a lifelong medication. Do not stop unless instructed by your doctor. 2. Anti-platelet Therapy. -In addition to aspirin, you will take ONE of the following anti-platelet medications daily. This will help prevent a clot from forming in your stent: Brilinta (ticagrelor) OR Plavix (clopidogrel) OR Effient (prasugrel), -You will need to take your anti-platelet medicine every day for 12 months -Please consult your heart doctor before you stop this medicine. -They may want you to continue for a longer period of time. 3. Statins -A statin medication lowers cholesterol levels in the blood. This helps slow the progression of heart disease. - Please take your statin medication as prescribed by your doctor. -You may be taking one of the following statins: Lipitor (atorvastatin) Other Medications: -Beta chadd. (Metoprolol) Is a medication that protects your heart from stress and can prevent future heart attacks. It can slow your heart rate. It can take weeks for your body to get used to a beta chadd. The dose may need to be changed a few times as your body adjusts Do not stop taking these medicines without talking to your doctor. -Take all other medicines as directed by your doctor. Do not take any extra aspirin or ibuprofen. They can increase your risk of bleeding. Many [id number] drugs contain aspirin. If you are unsure about what the drug contains, check with your pharmacist before taking it. -For mild discomfort, you may take plain Tylenol (acetaminophen). Follow dose directions, but do not take more than 4,000 mg of acetaminophen in 24 hours. Contact your doctor right away or go to the nearest hospital Emergency Room if you have: -Severe angina or chest pain. (This may be a sign of a problem with your stent.) -Excessive bruising, blood in urine/stool or black tarry stools. Healthy LifeStyle It is important to keep a heart healthy lifestyle. This can improve your long- term health and decrease your risk for heart attacks. -Quitting tobacco: the most important thing you can do to protect your health. -Managing your blood cholesterol, blood pressure, weight, and stress. -The importance of regular exercise. -Heart Healthy Diet: Include more plants in your diet. Eat lots of fresh vegetables and fresh fruits. Eat good fats: plant based oils, avocado, nuts, beans, legumes. Eat more seafood. Limit Meat. Switch to whole grains. -Avoid fried foods and animal fats and processed meats Discharge Disposition: HOME SELF-CARE
[2021-05-12 12:02] LABS: Basophils # (A) 0.09 X 10*3/uL (0.00-0.10); Basophils % (A) 1.1 %; Eosinophils # (A) 0.36 X 10*3/uL (0.04-0.35); Eosinophils % (A) 4.2 %; HCT 45.7 % (37.2-46.3); Immature Grans, Automated 0.6 %; Lymphocytes % (A) 18.7 %; MCH 29.6 pg (27.0-32.0); MCHC 30.6 g/dL (32.0-37.0); MCV 96.6 fL (80.0-97.0); Mean Platelet Volume 10.1 fL (9.5-12.2); Monocytes % (A) 9.4 %; NRBC Per 100 WBC 0 /100 WBCS (0.0-0.0); Neutrophils # (A) 5.65 X 10*3/uL (1.80-7.70); Platelet Count 210 X 10*3/uL (140-440); RBC 4.73 X 10*6/uL (4.10-5.20); RDW 14.1 % (11.5-14.5); WBC 8.55 X 10*3/uL (4.50-10.00)
[2021-05-12 12:03] LABS: RBC Morphology NORMAL
--- NOTE | 2021-05-12 12:17 | P.PN ---
Subjective This is a 75-year-old female with a past medical history of hypertension. She follows with Dr. Yanez at [place]. We're consulted for chest pain and elevated troponin. Patient presents to the emergency department on 05/07/21 with complaints of sudden onset chest pain, lightheadedness, dizziness, and feeling that she would suddenly passed out. Her blood pressure was quite elevated when she initially presented. Her initial troponin was negative, repeat troponin 0.80 and 0.78. EKG did not reveal ischemic changes she was started on intravenous h eparin and was admitted to floor. Echocardiogram revealed an EF of 4045 percent, anterior septal hypokinesis, septal hypokinesis, apex hypokinesis, mild mitral regurgitation, mild tricuspid regurgitation. Cardiac catheterization was recommended with Dr. Martinez. Patient underwent cardiac catheterization with Dr. Martinez on 05/09/21 which revealed 80-90% stenosis in the proximal LAD, mild nonobstructive disease in the proximal to mid RCA. Patient under successful PCI to proximal LAD by Dr. Gonzalez. 05/10/20 Patient with tenderness to the right groin, evidence of hematoma after cardiac catheterization. Ultrasound obtained on patient's Right groin which revealed no pseudoaneurysm, did reveal evidence of AV shunting noted in the common femoral vein. This was discussed with Dr. Mccurdy and Dr. Gonzalez, recommend continuing to monitor at this time. 05/12/20 Patient seen and examined at bedside. She denies any chest pain, shortness of breath, lightheadedness, dizziness or weakness. No focal symptoms. Her groin site has improved, continues to have some swelling, but improved, no longer pain or tenderness MRI brain revealed acute/subacute microinfarcts of the right posterior cerebellum, right frontal lobe and bilateral occipital lobes. Suspicious for embolic phenomenon She is currently maintained on aspirin 81 mg daily, atorvastatin 80 mg nightly, Brilinta 90 mg twice a day, metoprolol tartrate 25 mg twice a day GENERAL: Well-appearing, well-nourished and in no acute distress. NECK: Supple without JVD or thyromegaly. LUNGS: Breath sounds clear to auscultation bilaterally. Respiration equal and unlabored. No wheezes, rales or rhonchi. HEART: Regular rate and rhythm without murmurs, rubs or gallops. S1 and S2 heard. EXTREMITIES: Normal range of motion, no edema. No clubbing or cyanosis. Peripheral pulses intact. SKIN: warm, dry. Right groin site, clean, dry, swelling noted, tenderness has resolved ASSESSMENT NSTEMI s/p PCI to proximal LAD on 05/09/21. Hypertension Ischemic cardiomyopathy AV shunting noted in the common femoral vein after cardiac catheterization, improving Carotid stenosis, left Acute/subacute microinfarcts of the right posterior cerebellum, right frontal lobe and bilateral occipital lobes. This is suspicious for embolic phenomenon given multiple vascular distribution. Seen on MRI PLAN Unclear if patient's microinfarcts were caused by cardiac catheterization vs prior event Continue atorvastatin to 80mg daily. Dual antiplatelet therapy with Aspirin and Brilinta Continue amlodipine and metoprolol tartrate At this time we do not recommend EDITA inpatient, we do recommend 30 day event monitor first prior to a loop recorder implantation Case management consulted and Brilinta is covered with $3.90/month copay From a cardiology perspective, patient is stable to be discharged when 30 day event monitor is placed. On discharge, patient would like to follow up with her enterprise business architect Dr. Yanez Nurse Practitioner note has been reviewed, I agree with a documented findings and plan of care. Patient was seen and examined. Objective - Vital Signs Vital signs: Vital Signs Temp 98.0 F 05/12/21 07:55 Pulse 68 05/12/21 07:55 Resp 17 05/12/21 07:55 BP 151/73 05/12/21 07:55 Pulse Ox 96 05/12/21 07:55 Intake & Output 05/11/21 05/12/21 05/12/21 18:59 06:59 18:59 Intake Total 180 118 Balance 180 118 Intake: Oral 180 118 Other: Voiding Method Toilet # Voids 1 - Labs CBC & Chem 7: 05/12/21 06:30 05/10/21 07:25 Labs: Abnormal Lab Results - Last 24 Hours (Table) 05/12/21 Range/Units 06:30 MCHC 30.6 L (32.0-37.0) g/dL Immature Gran # 0.05 H (0.00-0.04) X 10*3/uL Eosinophils # 0.36 H (0.04-0.35) X 10*3/uL
[2021-05-12 17:59] LABS: African American GFR (CKD) 63.2 (60.0-200.0); Albumin 3.9 g/dL (3.8-4.9); Albumin/Globulin Ratio 1.55 (1.60-3.17); Anion Gap 16.3 mmol/L (10.00-18.00); BUN/Creat Ratio 14.71 Ratio (12.00-20.00); Calcium 9.3 mg/dL (8.7-10.3); Carbon Dioxide 17.5 mmol/L (20.0-27.5); Globulin 2.5 g/dL (1.6-3.3); Non-African American GFR(CKD) 54.5 (60.0-200.0); Potassium 5.6 mmol/L (3.5-5.5); Total Bilirubin 0.4 mg/dL (0.30-1.20); Total Protein 6.4 g/dL (6.2-8.2)
== END 2021-05-12 12:08 | disposition home or self-care (01) | DRG 246 ==
LOC: SUPCPDRO 14:19 → EC 14:19 → 6NMEDSUR 17:15 → OBSVTOIN 05-08 18:22
PROVIDERS: ADMIT Internal Medicine; ATTEND Internal Medicine
PROC: B2111ZZ Fluoroscopy of Multiple Coronary Arteries using Low Osmolar Contrast (ICD-10-PCS; 2021-05-09)
PROC: 027034Z Dilation of Coronary Artery, One Artery with Drug-eluting Intraluminal Device, Percutaneous Approach (ICD-10-PCS; principal; 2021-05-09 15:25)
PROC: 4A023N7 Measurement of Cardiac Sampling and Pressure, Left Heart, Percutaneous Approach (ICD-10-PCS; 2021-05-09 15:25)
DX: I21.4 Non-ST elevation (NSTEMI) myocardial infarction (principal); I63.40 Cerebral infarction due to embolism of unspecified cerebral artery; I25.110 Atherosclerotic heart disease of native coronary artery with unstable angina pectoris; Z20.822 Contact with and (suspected) exposure to COVID-19; E78.5 Hyperlipidemia, unspecified; G89.29 Other chronic pain; M54.50 Low back pain, unspecified; I65.21 Occlusion and stenosis of right carotid artery; T50.996A Underdosing of other drugs, medicaments and biological substances, initial encounter; H91.92 Unspecified hearing loss, left ear; I10 Essential (primary) hypertension; H93.12 Tinnitus, left ear; I25.5 Ischemic cardiomyopathy; W01.0XXA Fall on same level from slipping, tripping and stumbling without subsequent striking against object, initial encounter; I49.3 Ventricular premature depolarization; Y84.0 Cardiac catheterization as the cause of abnormal reaction of the patient, or of later complication, without mention of misadventure at the time of the procedure; Z88.5 Allergy status to narcotic agent; Z98.51 Tubal ligation status; Z79.02 Long term (current) use of antithrombotics/antiplatelets; Z79.82 Long term (current) use of aspirin; Z79.899 Other long term (current) drug therapy; Z82.79 Family history of other congenital malformations, deformations and chromosomal abnormalities
CPT/HCPCS: 36415; 70450; 70496; 70498; 70551; 71046; 71275; 80048; 80053; 80061; 83036; 83690; 83735; 83880; 84484; 85025; 85027; 85379; 85610; 85730; 87635; 93005; 93270; 93306; 93458; 93880; 93975; 99285